=== PATIENT | male | born 1955 | race Caucasian/White ===

== ENCOUNTER 2020-08-25 10:07 | Outpatient (REF) | payer BC, SELFPAY ==
[2020-08-25 11:35] LABS: Alanine Aminotransferase 26 U/L (0-40); Albumin Level 4.8 g/dL (3.5-5.0); Alkaline Phosphatase 53 U/L (39-117); Anion Gap 13 (12-20); Aspartate Amino Transferase 18 U/L (5-37); Bilirubin Total 0.6 mg/dL (0.0-1.0); Blood Urea Nitrogen 21 mg/dL (9-16); Calcium 9.5 mg/dL (8.4-10.2); Carbon Dioxide 27 mmol/L (22-29); Chloride 104 mmol/L (96-108); Cholesterol 140 mg/dL; Estimated Glomerular Filt Rate > 60; Glucose Fasting 95 mg/dL (60-99); HDL Cholesterol 41 mg/dL; LDL Cholesterol Calculated 74 mg/dl; Sodium 140 mmol/L (135-145); Total Protein 7.4 g/dL (6.5-8.0); Triglycerides 125 mg/dL
[2020-08-30 13:36] LABS: Vitamin D 25-OH, D2 <4 ng/mL; Vitamin D 25-OH, D3 48 ng/mL; Vitamin D 25-OH, Total 48 ng/mL (30-100)
== END 2020-08-25 10:08 | disposition home or self-care (01) ==
LOC: HO.LAB 10:07
PROVIDERS: Visit Provider Internal Medicine
DX: E11.9 Type 2 diabetes mellitus without complications (principal); E55.9 Vitamin D deficiency, unspecified
CPT/HCPCS: 36415; 80053; 80061; 82306

== ENCOUNTER 2021-03-09 08:32 | Outpatient (REF) | payer BC, SELFPAY ==
[2021-03-09 10:17] LABS: Alanine Aminotransferase 26 U/L (0-40); Albumin Level 4.5 g/dL (3.5-5.0); Alkaline Phosphatase 52 U/L (39-117); Anion Gap 12 (12-20); Aspartate Amino Transferase 18 U/L (5-37); Bilirubin Total 0.5 mg/dL (0.0-1.0); Blood Urea Nitrogen 17 mg/dL (9-16); Calcium 9.3 mg/dL (8.4-10.2); Carbon Dioxide 27 mmol/L (22-29); Chloride 105 mmol/L (96-108); Cholesterol 134 mg/dL; Estimated Glomerular Filt Rate > 60; Glucose Fasting 102 mg/dL (60-99); HDL Cholesterol 41 mg/dL; LDL Cholesterol Calculated 75 mg/dl; Sodium 140 mmol/L (135-145); Total Protein 6.7 g/dL (6.5-8.0); Triglycerides 94 mg/dL
[2021-03-15 13:26] LABS: Vitamin D 25-OH, D2 <4 ng/mL; Vitamin D 25-OH, D3 41 ng/mL; Vitamin D 25-OH, Total 41 ng/mL (30-100)
== END 2021-03-09 08:33 | disposition home or self-care (01) ==
LOC: HO.LAB 08:32
PROVIDERS: PCP Internal Medicine; Visit Provider Internal Medicine
DX: E11.9 Type 2 diabetes mellitus without complications (principal); E78.5 Hyperlipidemia, unspecified; E55.9 Vitamin D deficiency, unspecified
CPT/HCPCS: 36415; 80053; 80061; 82306

== ENCOUNTER 2021-08-31 07:26 | Outpatient (REF) | payer BC, SELFPAY ==
[2021-08-31 08:28] LABS: Creatinine Urine 33.24 mg/dL; Microalbumin Urine < 5.0 mg/L
[2021-08-31 08:31] LABS: Alanine Aminotransferase 21 U/L (0-40); Albumin Level 4.6 g/dL (3.5-5.0); Alkaline Phosphatase 50 U/L (39-117); Anion Gap 12 (12-20); Aspartate Amino Transferase 18 U/L (5-37); Blood Urea Nitrogen 17 mg/dL (9-16); Calcium 9.9 mg/dL (8.4-10.2); Carbon Dioxide 28 mmol/L (22-29); Chloride 102 mmol/L (96-108); Cholesterol 144 mg/dL; Estimated Glomerular Filt Rate > 60; Glucose Fasting 105 mg/dL (60-99); HDL Cholesterol 40 mg/dL; LDL Cholesterol Calculated 81 mg/dl; Potassium 3.8 mmol/L (3.3-5.1); Sodium 138 mmol/L (135-145); Total Protein 7.2 g/dL (6.5-8.0); Triglycerides 117 mg/dL
== END 2021-08-31 07:27 | disposition home or self-care (01) ==
LOC: HO.LAB 07:26
PROVIDERS: PCP Internal Medicine; Visit Provider Internal Medicine
DX: E11.9 Type 2 diabetes mellitus without complications (principal); E78.5 Hyperlipidemia, unspecified
CPT/HCPCS: 36415; 80053; 80061; 82043

== ENCOUNTER 2022-03-13 12:03 | Outpatient (REF) | payer BC, SELFPAY ==
[2022-03-13 13:49] LABS: Creatinine Urine 107.45 mg/dL; Microalbum/Creatinine Ratio Ur 5.5 ug/mg cr
[2022-03-13 13:52] LABS: Alanine Aminotransferase 26 U/L (0-40); Albumin Level 4.3 g/dL (3.5-5.0); Alkaline Phosphatase 54 U/L (39-117); Anion Gap 14 (12-20); Aspartate Amino Transferase 20 U/L (5-37); Bilirubin Total 0.5 mg/dL (0.0-1.0); Blood Urea Nitrogen 18 mg/dL (9-16); Calcium 9.4 mg/dL (8.4-10.2); Carbon Dioxide 26 mmol/L (22-29); Chloride 105 mmol/L (96-108); Cholesterol 152 mg/dL; Estimated Glomerular Filt Rate > 60; Glucose Fasting 98 mg/dL (60-99); HDL Cholesterol 42 mg/dL; LDL Cholesterol Calculated 88 mg/dl; Potassium 4.5 mmol/L (3.3-5.1); Sodium 140 mmol/L (135-145); Total Protein 6.7 g/dL (6.5-8.0); Triglycerides 114 mg/dL
[2022-03-13 14:15] LABS: Vitamin D 25-OH Total 44.2 ng/mL (>30)
== END 2022-03-13 12:04 | disposition home or self-care (01) ==
LOC: HO.LAB 12:03
PROVIDERS: Visit Provider Internal Medicine
DX: E11.9 Type 2 diabetes mellitus without complications (principal); E78.5 Hyperlipidemia, unspecified; E55.9 Vitamin D deficiency, unspecified
CPT/HCPCS: 36415; 80053; 80061; 82043; 82306

== ENCOUNTER 2022-08-14 09:58 | Outpatient (REF) | payer BC, SELFPAY ==
--- NOTE | 2022-08-14 10:07 | ECG_ITS ---
Test Reason : preop Blood Pressure : / mmHG Vent. Rate : 068 BPM Atrial Rate : 068 BPM P-R Int : 154 ms QRS Dur : 088 ms QT Int : 430 ms P-R-T Axes : 075 038 052 degrees QTc Int : 457 ms Normal sinus rhythm Normal ECG No previous ECGs available Referred By: Hayley Morales Electronically Signed By:POLO PERALTA
[2022-08-14 10:29] LABS: Hematocrit 42.7 % (42.0-52.0); Hemoglobin 14.5 g/dl (14.0-18.0); Mean Corpuscular Hemoglobin 28.3 pg (27.0-33.0); Mean Corpuscular Volume 83.4 fL (80.0-98.0); Mean Platelet Volume 10.3 fL (9.4-12.4); Platelet Count 262 X10*3/uL (160-400); Red Blood Count 5.12 X10*6/uL (4.60-5.80); Red Cell Distribution Width 12.6 % (11.0-16.0); White Blood Count 7.6 X10*3/uL (4.8-10.8)
[2022-08-14 10:36] LABS: Prothrombin Time 11.1 SEC (10.0-13.1)
[2022-08-14 11:06] LABS: Creatinine Urine 166.89 mg/dL; Microalbum/Creatinine Ratio Ur 5.9 ug/mg cr
[2022-08-14 11:13] LABS: Alanine Aminotransferase 22 U/L (0-40); Albumin Level 4.7 g/dL (3.5-5.0); Alkaline Phosphatase 58 U/L (39-117); Anion Gap 16 (12-20); Aspartate Amino Transferase 16 U/L (5-37); Bilirubin Total 0.6 mg/dL (0.0-1.0); Blood Urea Nitrogen 23 mg/dL (9-16); Calcium 10.1 mg/dL (8.4-10.2); Carbon Dioxide 28 mmol/L (22-29); Chloride 105 mmol/L (96-108); Cholesterol 148 mg/dL; Estimated Glomerular Filt Rate > 60; Glucose Fasting 94 mg/dL (60-99); Glucose Random 93 mg/dL (60-115); HDL Cholesterol 39 mg/dL; LDL Cholesterol Calculated 64 mg/dl; Potassium 4.1 mmol/L (3.3-5.1); Sodium 145 mmol/L (135-145); Total Protein 7.2 g/dL (6.5-8.0); Triglycerides 228 mg/dL
[2022-08-14 11:20] LABS: TSH reflex Free T4 0.41 uIU/mL (0.32-4.0)
== END 2022-08-14 09:59 | disposition home or self-care (01) ==
LOC: HO.LAB 09:58
PROVIDERS: PCP Internal Medicine; Visit Provider Nurse Practitioner Family
DX: Z01.818 Encounter for other preprocedural examination (principal); E55.9 Vitamin D deficiency, unspecified; E11.9 Type 2 diabetes mellitus without complications; E78.5 Hyperlipidemia, unspecified; I10 Essential (primary) hypertension; E78.00 Pure hypercholesterolemia, unspecified
CPT/HCPCS: 36415; 80048; 80053; 80061; 82043; 82306; 84443; 85027; 85610; 93005

== ENCOUNTER 2022-09-15 08:19 | Outpatient (REF) | payer BC, SELFPAY ==
[2022-09-15 10:02] LABS: Alanine Aminotransferase 23 U/L (0-40); Albumin Level 4.5 g/dL (3.5-5.0); Alkaline Phosphatase 55 U/L (39-117); Anion Gap 13 (12-20); Aspartate Amino Transferase 19 U/L (5-37); Bilirubin Total 0.5 mg/dL (0.0-1.0); Blood Urea Nitrogen 19 mg/dL (9-16); Calcium 9.5 mg/dL (8.4-10.2); Carbon Dioxide 28 mmol/L (22-29); Chloride 104 mmol/L (96-108); Cholesterol 147 mg/dL; Estimated Glomerular Filt Rate > 60; Glucose Fasting 99 mg/dL (60-99); HDL Cholesterol 41 mg/dL; LDL Cholesterol Calculated 79 mg/dl; Potassium 4.4 mmol/L (3.3-5.1); Sodium 141 mmol/L (135-145); Total Protein 6.8 g/dL (6.5-8.0); Triglycerides 136 mg/dL
[2022-09-15 10:12] LABS: Vitamin D 25-OH Total 40.5 ng/mL (>30)
[2022-09-15 10:35] LABS: Creatinine Urine 66.99 mg/dL; Microalbum/Creatinine Ratio Ur 7.4 ug/mg cr
== END 2022-09-15 08:20 | disposition home or self-care (01) ==
LOC: HO.LAB 08:19
PROVIDERS: PCP Internal Medicine; Visit Provider Internal Medicine
DX: Z00.00 Encounter for general adult medical examination without abnormal findings (principal); E11.9 Type 2 diabetes mellitus without complications; E78.5 Hyperlipidemia, unspecified; E55.9 Vitamin D deficiency, unspecified
CPT/HCPCS: 36415; 80053; 80061; 82043; 82306

== ENCOUNTER 2023-01-10 08:41 | Outpatient (REF) | payer BC, SELFPAY ==
[2023-01-10 10:34] LABS: Estimated Average Glucose 111 mg/dL; Hemoglobin A1c % 5.5 %
== END 2023-01-10 08:42 | disposition home or self-care (01) ==
LOC: HO.LAB 08:41
PROVIDERS: PCP Internal Medicine; Visit Provider Internal Medicine
DX: E11.40 Type 2 diabetes mellitus with diabetic neuropathy, unspecified (principal)
CPT/HCPCS: 36415; 83036

== ENCOUNTER 2023-01-12 10:53 | Outpatient (AMB) | payer BC, SELFPAY ==
[2023-01-12 10:57] VITALS: BP 126/72; BMI 25.4
--- NOTE | 2023-01-12 10:57 | MHC.PC.OV ---
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 Required: No Accompanied by: Self / Same As Patient Allergies Penicillins [PENICILLINS] Allergy (Intermediate, Verified 01/12/23 11:07) RASH Medication List - Last Reconciled 01/12/23 by Melanie Lux MD atorvastatin 40 mg PO DAILY lisinopril-hydrochlorothiazide 20-25 mg 1 tab PO DAILY metformin ER 2,000 mg (4 x 500 mg) PO DAILY multivitamin 1 tab PO DAILY omega-3 fatty acids (Fish Oil Concentrate) 1,000 mg PO DAILY Tobacco use date assessed: 08/14/22 Fall risk assessment: No Falls in past year Last assessed Fall Risk: 01/12/23 Dental Screening Dental Screen Date: 01/12/23 Did you have a dental visit in the last 12 months?: Yes Did you have a dental problem in the last 6 months where you did not have access to dental care?: No Was dental information given to patient?: Patient has dentist HPI HPI Comments History of Present Illness Details This is a 67-year-old male with diabetes mellitus type 2, hypertension and dyslipidemia that complains today of a skin lesion that has been present for about 6 month in his head of beige color that bothers him. I will refer him to Dermatology denies any weight loss. A1c within goal. Blood pressure stable. LDL well control. Denies any chest pain or shortness of breath. Compliant with medications. [facility] Medical History (Updated 01/12/23 @ 11:13 by Melanie Lux MD) Diabetes mellitus Essential hypertension Hypovitaminosis D Long-term use of aspirin therapy Physical exam Pure hypercholesterolemia Surgical History H/O hernia repair History of cataract removal with insertion of prosthetic lens History of shoulder surgery Family History Father Hypertension CVD (cardiovascular disease) Myocardial infarction Mother Diabetes Aneurysm Brother Diabetes Sister Alive and well Social History Housing: House Alcohol intake: current Alcohol intake frequency: holidays/special occasions only Alcohol type: beer Patient Tobacco Use Status: Never used Tobacco e-Cigarette/Vaping Use: Never Used Second Hand Smoke Exposure: No service: No Current occupational status: employed Current occupational exposures/hazards: No Cognitive needs: No Hearing needs: No Vision needs: Yes Questionnaire Thrive Questionnaire Date Thrive assessed: 08/14/22 SARAH-7 AMB Questionnaire SARAH-7 Date SARAH - 7 assessed: 08/14/22 Source: Developed by Drs. Davion Saldivar, Rochelle Dave, Wayne Garcia and colleagues, with an educational keri from [employer]. Review of Systems Const All systems reviewed & are unremarkable except as noted in HPI and below Eyes Reports no additional complaints, Denies change in vision and Denies other visual disturbances Card Denies chest pain at rest, Denies chest pain with activity, Denies edema, Denies irregular heart rhythm, Denies claudication, Denies dyspnea, Denies dyspnea on exertion, Denies orthopnea, Denies paroxysmal nocturnal dyspnea and Denies slow heart rate Resp Denies cough, Denies dyspnea and Denies dyspnea on exertion GI Denies abdominal pain, Denies change in bowel habits, Denies excessive flatus, Denies nausea and Denies vomiting Denies urinary hesitancy, Denies urinary incontinence and Denies urinary urgency Musc Denies abnormal gait, Denies atrophy, Denies deformity and Denies limited range of motion Skin/Breast Reports lesions and Denies rash Neuro Denies abnormal gait and Denies lack of coordination Physical exam (Primary Care) Vital Signs: Last Vital Signs BP 126/72 01/12/23 10:57 BMI result Body Mass Index 25.4 Tobacco/Smoking Status: Tobacco use Status Tobacco use date assessed 08/14/22 01/12/23 11:03 Patient Tobacco Use Status Never used Tobacco 01/12/23 11:03 Tobacco use type 03/11/21 09:09 e-Cigarette/Vaping Use Never Used 01/12/23 11:03 Thrive Assessment: Date of Thrive Assessment Date Thrive assessed 08/14/22 01/12/23 11:03 Eyes General: appearance normal, both eyes and all related structures Eyelids: Yes eyelids normal Conjunctivae: conjunctivae normal Neck Neck: Yes normal visual inspection and Yes supple Resp Effort & Inspection: normal respiratory effort Auscultation: clear to auscultation bilaterally Cardio Jugular venous distension: no JVD Rate: regular rate Rhythm: regular rhythm Heart sounds: S1 normal heart sound present and S2 normal heart sound present Skin Lesions: lesion noted papule scalp color flesh-colored Extrem General: Yes full ROM Assessment and Plan Assessment & Plan (1) Diabetes mellitus: Code(s): E11.9 - Type 2 diabetes mellitus without complications Qualifiers: Diabetes mellitus type: type 2 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 A1c goal is equal or less than 7%. (2) Essential hypertension: Code(s): I10 - Essential (primary) hypertension Plan: Continue lisinopril-hydrochlorothiazide. Blood pressure goal is equal or less than 130/80. (3) Pure hypercholesterolemia: Code(s): E78.00 - Pure hypercholesterolemia, unspecified Plan: Continue statins. LDL goal is less than 70. (4) Skin lesion: Code(s): L98.9 - Disorder of the skin and subcutaneous tissue, unspecified Plan: Referred to dermatology Orders: Orders Comprehensive [place]. Panel Fast 6 Months E11.9 - Type 2 diabetes mellitus without complications Lipid Panel 6 Months E78.5 - Hyperlipidemia, unspecified Vitamin D 25-OH Total 6 Months E55.9 - Vitamin D deficiency, unspecified Microalbumin, Random (w Creat) 6 Months E11.9 - Type 2 diabetes mellitus without complications Referrals Dermatology Referral L98.9 - Disorder of the skin and subcutaneous tissue, unspecified Coding Level of Care Code Est Pt Level 4 (13118) Diagnoses Diabetes mellitus E11.9 Diabetes mellitus type: type 2 Diabetes mellitus halfway insulin use: without halfway use Diabetes mellitus complication status: without complication Essential hypertension I10 Pure hypercholesterolemia E78.00 Skin lesion L98.9 Time Spent (min) 22
== END 2023-01-12 11:26 | disposition home or self-care (01) ==
PROVIDERS: PCP Internal Medicine; Visit Provider Internal Medicine
DX: E11.9 Type 2 diabetes mellitus without complications (principal); I10 Essential (primary) hypertension; E78.00 Pure hypercholesterolemia, unspecified; L98.9 Disorder of the skin and subcutaneous tissue, unspecified
CPT/HCPCS: 99214

== ENCOUNTER 2023-07-11 08:22 | Outpatient (REF) | payer BC, SELFPAY ==
[2023-07-11 09:45] LABS: Alanine Aminotransferase 22 U/L (0-40); Albumin Level 4.7 g/dL (3.5-5.0); Alkaline Phosphatase 56 U/L (39-117); Anion Gap 13 (12-20); Aspartate Amino Transferase 19 U/L (5-37); Bilirubin Total 0.7 mg/dL (0.0-1.0); Blood Urea Nitrogen 17 mg/dL (9-16); Calcium 9.8 mg/dL (8.4-10.2); Carbon Dioxide 29 mmol/L (22-29); Chloride 104 mmol/L (96-108); Cholesterol 149 mg/dL (<200); Estimated Glomerular Filt Rate > 60; Glucose Fasting 98 mg/dL (60-99); HDL Cholesterol 42 mg/dL (>40); LDL Cholesterol Calculated 83 mg/dL (<100); Potassium 3.8 mmol/L (3.3-5.1); Sodium 142 mmol/L (135-145); Total Protein 7.5 g/dL (6.5-8.0); Triglycerides 122 mg/dL (<150)
[2023-07-11 09:47] LABS: Creatinine Urine 73.06 mg/dL; Microalbumin Urine < 5.0 mg/L
[2023-07-11 10:03] LABS: Vitamin D 25-OH Total 39.9 ng/mL (>30)
== END 2023-07-11 08:23 | disposition home or self-care (01) ==
LOC: HO.LAB 08:22
PROVIDERS: PCP Internal Medicine; Visit Provider Internal Medicine
DX: E78.5 Hyperlipidemia, unspecified (principal); E55.9 Vitamin D deficiency, unspecified; E11.9 Type 2 diabetes mellitus without complications
CPT/HCPCS: 36415; 80053; 80061; 82306; 82570

== ENCOUNTER 2023-07-13 11:03 | Outpatient (AMB) | payer BC, SELFPAY ==
--- NOTE | 2023-07-13 11:05 | MHC.PC.OV ---
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: No Accompanied by: Self / Same As Patient Allergies Penicillins [PENICILLINS] Allergy (Intermediate, Verified 07/13/23 11:20) RASH Medication List - Last Reconciled 07/13/23 by Melanie Lux MD atorvastatin 40 mg PO DAILY lisinopril-hydrochlorothiazide 20-25 mg 1 tab PO DAILY metformin ER 2,000 mg (4 x 500 mg) PO DAILY multivitamin 1 tab PO DAILY omega-3 fatty acids (Fish Oil Concentrate) 1,000 mg PO DAILY Tobacco use date assessed: 07/13/23 Fall risk assessment: No Falls in past year Last assessed Fall Risk: 07/13/23 Dental Screening Dental Screen Date: 07/13/23 Did you have a dental visit in the last 12 months?: Yes Did you have a dental problem in the last 6 months where you did not have access to dental care?: No Was dental information given to patient?: Patient has dentist HPI HPI Comments History of Present Illness Details This is a 68-year-old male with diabetes mellitus type 2, hypertension, hyperlipidemia low vitamin-D that comes today for follow-up on his conditions. A1c within goal. Blood pressure stable. LDL not on goal and I will increase atorvastatin from 40 mg to 80 mg. On vitamin-D supplements for his low vitamin-D. Complains of erectile dysfunction and would like medication for this matter. Last diabetic eye exam was July 2022. [facility] Medical History Physical exam Hypovitaminosis D Long-term use of aspirin therapy Pure hypercholesterolemia Essential hypertension Diabetes mellitus Surgical History History of cataract removal with insertion of prosthetic lens H/O hernia repair History of shoulder surgery Family History Father Hypertension CVD (cardiovascular disease) Myocardial infarction Mother Diabetes Aneurysm Brother Diabetes Sister Alive and well Social History Housing: House Alcohol intake: current Alcohol intake frequency: holidays/special occasions only Alcohol type: beer Patient Tobacco Use Status: Never used Tobacco e-Cigarette/Vaping Use: Never Used Second Hand Smoke Exposure: No service: No Current occupational status: employed Current occupational exposures/hazards: No Cognitive needs: No Hearing needs: No Vision needs: Yes Questionnaire PHQ-9 Over the last 2 weeks, how often have you been bothered by any of the following problems? 1. Little interest or pleasure in doing things: not at all 2. Feeling down, depressed, or hopeless: not at all 3. Trouble falling or staying asleep, or sleeping too much: not at all 4. Feeling tired or having little energy: not at all 5. Poor appetite or overeating: not at all 6. Feeling bad about yourself - or that you are a failure or have let yourself or your family down: not at all 7. Trouble concentrating on things, such as reading the newspaper or watching television: not at all 8. Moving or speaking so slowly that other people could have noticed. Or the opposite - being so fidgety or restless that you have been moving around a lot more than usual: not at all 9. Thoughts that you would be better off or of hurting yourself in some way: not at all Total score: 0 Depression Screening Interpretation: Negative Depression Screening Done: Yes 36094 - PHQ-9 Billing: Yes Source: Developed by Drs. Davion Saldivar, Rochelle Dave, Wayne Garcia and colleagues, with an educational keri from [employer]. Thrive Questionnaire Date Thrive assessed: 07/13/23 I am a: Patient What is your living situation today?: I have a steady place to live Within the past 12 months, did the food you bought not last and you didn't have the money to get more?: Never true Within the past 12 months, did you worry whether your food would run out before you got money to buy more?: Never true Do you have trouble paying for medicines?: No Do you have trouble getting transportation to medical appointments?: No Do you have trouble paying your heating and electricity bill?: No Do you have trouble taking care of your child, family member or friend?: No Do you have trouble with day-to-day activities such as bathing, preparing meals, shopping, managing finances, etc.?: No Are you currently unemployed and looking for a job?: No Are you interested in more education?: No Please select the resources that you would like help with: None Currently or been in a relationship where the following occur: no concerns reported THRIVE Score: 0 AUDIT C Alcohol Use Questionnaire (AUDIT-C) 1. How often do you have a drink containing alcohol?: Monthly or less 2. How many drinks containing alcohol do you have on a typical day when you are drinking?: 1 or 2 3. How often do you have six or more drinks on one occasion?: Never Total Score: 1 Score Reviewed/Action Taken: No SARAH-7 AMB Questionnaire SARAH-7 Date SARAH - 7 assessed: 07/13/23 Feeling nervous, anxious, or on edge: 0 = Not at all Not being able to stop or control worryin = Not at all Worrying too much about different things: 0 = Not at all Trouble relaxin = Not at all Being so restless that it is hard to sit still: 0 = Not at all Becoming easily annoyed or irritable: 0 = Not at all Feeling afraid as if something awful might happen: 0 = Not at all Total SARAH-7 score (0-4 normal; 5-9 mild; 10-14 moderate; 15-21 severe): 0 Source: Developed by Drs. Davion Saldivar, Rochelle Dave, Wayne Garcia and colleagues, with an educational keri from [employer]. SARAH-7 Assessment Billing SARAH-7 Assessment Tool: SARAH-7 Assessment 16952 Review of Systems Const All systems reviewed & are unremarkable except as noted in HPI and below Eyes Reports no additional complaints, Denies change in vision and Denies other visual disturbances Card Denies chest pain at rest, Denies chest pain with activity, Denies edema, Denies irregular heart rhythm, Denies claudication, Denies dyspnea, Denies dyspnea on exertion, Denies orthopnea, Denies paroxysmal nocturnal dyspnea and Denies slow heart rate Resp Denies cough, Denies dyspnea and Denies dyspnea on exertion GI Denies abdominal pain, Denies change in bowel habits, Denies excessive flatus, Denies nausea and Denies vomiting Denies urinary hesitancy, Denies urinary incontinence and Denies urinary urgency Musc Denies abnormal gait, Denies atrophy, Denies deformity and Denies limited range of motion Skin/Breast Denies bleeding lesions, Denies changing lesions and Denies rash Neuro Denies abnormal gait, Denies behavioral changes and Denies lack of coordination Psych Denies behavioral changes Physical exam (Primary Care) Vital Signs: Last Vital Signs BP 126/80 07/13/23 11:06 BMI result Body Mass Index 26.2 Tobacco/Smoking Status: Tobacco use Status Tobacco use date assessed 07/13/23 07/13/23 11:14 Patient Tobacco Use Status Never used Tobacco 07/13/23 11:07 Tobacco use type 03/11/21 09:09 e-Cigarette/Vaping Use Never Used 07/13/23 11:07 PHQ-9: PHQ-9 Score PHQ-9: Total score 0 07/13/23 11:14 Depression Screening Interpretation: Negative Thrive Assessment: Date of Thrive Assessment Date Thrive assessed 07/13/23 07/13/23 11:14 Currently or been in a relationship where the following occur: no concerns reported Neck Neck: Yes normal visual inspection and Yes supple Resp Effort & Inspection: normal respiratory effort Auscultation: clear to auscultation bilaterally Cardio Jugular venous distension: no JVD Rate: regular rate Rhythm: regular rhythm Heart sounds: S1 normal heart sound present and S2 normal heart sound present Extrem General: Yes full ROM Office Procedures Flu Questionnaire Does the patient have a severe egg allergy?: No Results AMB Hemoglobin A1c AMB Hemoglobin A1c 6.4 % Last Edit by YURIDIA Nelson on 07/13/23 11:15 Immunizations flu vacc [id number] 6mos up(PF) 60 mcg(15 mcgx4)/0.5 mL IM syringe Performing Provider: Melanie Lux MD [facility] Documented (not given) by: YURIDIA Nelson on 07/13/23 11:15 Reason Not Given: Patient Refused Results Reviewed Results Reviewed: Laboratory Last Values Hgb A1c (Clinic) 6.4 % (4.0-6.0) H 07/13/23 11:14 Assessment and Plan Assessment & Plan (1) Diabetes mellitus: Code(s): E11.9 - Type 2 diabetes mellitus without complications Qualifiers: Diabetes mellitus type: type 2 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 A1c goal is equal or less than 7%. (2) Essential hypertension: Code(s): I10 - Essential (primary) hypertension Plan: Continue lisinopril-hydrochlorothiazide. Blood pressure goal is equal or less than 130/80. (3) Pure hypercholesterolemia: Code(s): E78.00 - Pure hypercholesterolemia, unspecified Plan: Increase atorvastatin from 40 mg to 80 mg. LDL goal is less than 70. (4) Hypovitaminosis D: Code(s): E55.9 - Vitamin D deficiency, unspecified Plan: Continue vitamin-D supplements. Orders: Orders AMB Hemoglobin A1c Today E11.9 - Type 2 diabetes mellitus without complications Influenza [id number] Immunization Today Z23 - Encounter for immunization Medications: New atorvastatin 80 mg PO BEDTIME 90 days 90 tabs 1RF tadalafil administer approximately 30min before sexual activity; do not use more than 1 dose per 24hrs 20 mg PO DAILY 30 days PRN 5 tabs 3RF sexual activity Discontinued atorvastatin Discontinued Reason: Patient Completed Course 40 mg PO DAILY 90 caps 3RF Coding Level of Care Code Est Pt Level 4 (33195) Diagnoses Type 2 diabetes mellitus without complication, without long-term current use of insulin E11.9 Diabetes mellitus type: type 2 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
[2023-07-13 11:06] VITALS: BP 126/80; BMI 26.2
== END 2023-07-13 11:27 | disposition home or self-care (01) ==
PROVIDERS: PCP Internal Medicine; Visit Provider Internal Medicine
DX: E11.9 Type 2 diabetes mellitus without complications (principal); I10 Essential (primary) hypertension; E78.00 Pure hypercholesterolemia, unspecified; E55.9 Vitamin D deficiency, unspecified
CPT/HCPCS: 83036; 99214

== ENCOUNTER 2023-09-21 10:56 | Outpatient (AMB) | payer BC, SELFPAY ==
[2023-09-21 11:03] VITALS: BP 120/60; BMI 26.3
--- NOTE | 2023-09-21 11:03 | MHC.PC.OV ---
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 Accompanied by: Self / Same As Patient Allergies Penicillins [PENICILLINS] Allergy (Intermediate, Verified 09/21/23 11:14) RASH Medication List - Last Reconciled 09/21/23 by Melanie Lux MD atorvastatin 80 mg PO BEDTIME 90 days lisinopril-hydrochlorothiazide 20-25 mg 1 tab PO DAILY metformin ER 2,000 mg (4 x 500 mg) PO DAILY multivitamin 1 tab PO DAILY omega-3 fatty acids (Fish Oil Concentrate) 1,000 mg PO DAILY tadalafil 20 mg PO DAILY PRN 30 days Tobacco use date assessed: 07/13/23 Fall risk assessment: No Falls in past year Last assessed Fall Risk: 09/21/23 Dental Screening Dental Screen Date: 07/13/23 Did you have a dental visit in the last 12 months?: No Did you have a dental problem in the last 6 months where you did not have access to dental care?: No Was dental information given to patient?: Patient has dentist HPI HPI Comments History of Present Illness Details This is a 68-year-old male that comes for his physical exam. He has diabetes mellitus type 2 and A1cs within goal. Last colonoscopy was 2019 and was normal. Diabetic eye exam is done yearly. Denies any chest pain or shortness of breath. No fever or cough. [facility] Medical History Physical exam Hypovitaminosis D Long-term use of aspirin therapy Pure hypercholesterolemia Essential hypertension Diabetes mellitus Surgical History History of cataract removal with insertion of prosthetic lens H/O hernia repair History of shoulder surgery Family History Father Hypertension CVD (cardiovascular disease) Myocardial infarction Mother Diabetes Aneurysm Brother Diabetes Sister Alive and well Social History Housing: House Alcohol intake: current Alcohol intake frequency: holidays/special occasions only Alcohol type: beer Patient Tobacco Use Status: Never used Tobacco e-Cigarette/Vaping Use: Never Used Second Hand Smoke Exposure: No service: No Current occupational status: employed Current occupational exposures/hazards: No Cognitive needs: No Hearing needs: No Vision needs: Yes Questionnaire Thrive Questionnaire Date Thrive assessed: 07/13/23 SARAH-7 AMB Questionnaire SARAH-7 Date SARAH - 7 assessed: 07/13/23 Source: Developed by Drs. Davion Saldivar, Rochelle Dave, Wayne Garcia and colleagues, with an educational keri from [employer]. Review of Systems Const All systems reviewed & are unremarkable except as noted in HPI and below Eyes Reports no additional complaints, Denies change in vision and Denies other visual disturbances Card Denies chest pain at rest, Denies chest pain with activity, Denies edema, Denies irregular heart rhythm, Denies claudication, Denies dyspnea, Denies dyspnea on exertion, Denies orthopnea, Denies paroxysmal nocturnal dyspnea and Denies slow heart rate Resp Denies cough, Denies dyspnea and Denies dyspnea on exertion GI Denies abdominal pain, Denies change in bowel habits, Denies excessive flatus, Denies nausea and Denies vomiting Denies urinary hesitancy, Denies urinary incontinence and Denies urinary urgency Musc Denies atrophy, Denies deformity and Denies limited range of motion Physical exam (Primary Care) Vital Signs: Last Vital Signs BP 120/60 09/21/23 11:03 BMI result Body Mass Index 26.3 Tobacco/Smoking Status: Tobacco use Status Tobacco use date assessed 07/13/23 09/21/23 11:08 Patient Tobacco Use Status Never used Tobacco 09/21/23 11:08 Tobacco use type 03/11/21 09:09 e-Cigarette/Vaping Use Never Used 09/21/23 11:08 Thrive Assessment: Date of Thrive Assessment Date Thrive assessed 07/13/23 09/21/23 11:08 Const Orientation/consciousness: patient oriented x3 HENMT Head: Yes normal to inspection, Yes normocephalic and Yes atraumatic Ears: external ears normal Eyes General: appearance normal, both eyes and all related structures Eyelids: Yes eyelids normal Conjunctivae: conjunctivae normal Neck Neck: Yes normal visual inspection and Yes supple Resp Effort & Inspection: normal respiratory effort Auscultation: clear to auscultation bilaterally Cardio Jugular venous distension: no JVD Rate: regular rate Rhythm: regular rhythm Heart sounds: S1 normal heart sound present and S2 normal heart sound present GI Inspection: Yes normal to inspection Palpation (GI): Soft to palpation and nontender Auscultation: normal bowel sounds Skin General skin exam: no rashes or lesions noted Neuro General: patient oriented x3 and no focal motor deficits Extrem General: Yes full ROM Psych Appearance: grossly normal Assessment and Plan Assessment & Plan (1) Physical exam: Code(s): Z00.00 - Encounter for general adult medical examination without abnormal findings Plan: Repeat in a year. (2) Diabetes mellitus: Code(s): E11.9 - Type 2 diabetes mellitus without complications Qualifiers: Diabetes mellitus type: type 2 Diabetes mellitus senior care insulin use: without senior care use Diabetes mellitus complication status: without complication Qualified Code(s): E11.9 - Type 2 diabetes mellitus without complications Plan: Continue metformin. A1c goal is equal or less than 7%. Orders: Orders Lipid Panel 6 Months E78.5 - Hyperlipidemia, unspecified, Z00.00 - Encounter for general adult medical examination without abnormal findings Comprehensive [place]. Panel Fast 6 Months Z00.00 - Encounter for general adult medical examination without abnormal findings Coding Level of Care Code Est Pt Prev Care >65y(54299) Diagnoses Physical exam Z00.00 Type 2 diabetes mellitus without complication, without long-term current use of insulin E11.9 Diabetes mellitus type: type 2 Diabetes mellitus senior care insulin use: without senior care use Diabetes mellitus complication status: without complication Time Spent (min) 31
== END 2023-09-21 11:29 | disposition home or self-care (01) ==
PROVIDERS: PCP Internal Medicine; Visit Provider Internal Medicine
DX: Z00.00 Encounter for general adult medical examination without abnormal findings (principal); E11.9 Type 2 diabetes mellitus without complications
CPT/HCPCS: 99397

== ENCOUNTER 2024-03-26 08:59 | Outpatient (REF) | payer MEDICARE, MEDICAID, SELFPAY ==
[2024-03-26 10:14] LABS: Alanine Aminotransferase 32 U/L (0-40); Albumin Level 4.8 g/dL (3.5-5.0); Alkaline Phosphatase 53 U/L (39-117); Anion Gap 14 (12-20); Aspartate Amino Transferase 23 U/L (5-37); Bilirubin Total 0.6 mg/dL (0.0-1.0); Blood Urea Nitrogen 17 mg/dL (9-16); Carbon Dioxide 28 mmol/L (22-29); Chloride 104 mmol/L (96-108); Cholesterol 130 mg/dL (<200); Estimated Glomerular Filt Rate > 60; Glucose Fasting 106 mg/dL (60-99); HDL Cholesterol 44 mg/dL (>40); LDL Cholesterol Calculated 64 mg/dL (<100); Potassium 3.9 mmol/L (3.3-5.1); Sodium 142 mmol/L (135-145); Total Protein 7.6 g/dL (6.5-8.0); Triglycerides 111 mg/dL (<150)
== END 2024-03-26 09:00 | disposition home or self-care (01) ==
LOC: HO.LAB 08:59
PROVIDERS: PCP Internal Medicine; Visit Provider Internal Medicine
DX: Z00.00 Encounter for general adult medical examination without abnormal findings (principal); E78.5 Hyperlipidemia, unspecified
CPT/HCPCS: 36415; 80053; 80061

== ENCOUNTER 2024-03-28 10:48 | Outpatient (AMB) | payer MEDICARE, MEDICAID, SELFPAY ==
[2024-03-28 10:53] VITALS: BP 118/70; BMI 25.1
--- NOTE | 2024-03-28 10:53 | A.OFFPC_ITS ---
Vital Signs 03/28/24 10:53 Height 6 ft Weight 185 lb BMI 25.1 BP 118/70 Blood Pressure Location Lt brachial Position Sitting Intake Visit Reasons: dm Intake Note: Patient here for a follow up DM Camera Mechanic Required: No Accompanied by: Self / Same As Patient Allergies Penicillins [PENICILLINS] Allergy (Intermediate, Verified 03/28/24 11:06) RASH Medication List - Last Reconciled 03/28/24 by Melanie Lux MD atorvastatin 80 mg PO BEDTIME 90 days lisinopril-hydrochlorothiazide 20-25 mg 1 tab PO DAILY metformin ER 2,000 mg (4 x 500 mg) PO DAILY multivitamin 1 tab PO DAILY omega-3 fatty acids (Fish Oil Concentrate) 1,000 mg PO DAILY tadalafil 20 mg PO DAILY PRN 30 days Tobacco use date assessed: 07/13/23 Fall risk assessment: No Falls in past year Last assessed Fall Risk: 03/28/24 Dental Screening Dental Screen Date: 03/28/24 Did you have a dental visit in the last 12 months?: No Did you have a dental problem in the last 6 months where you did not have access to dental care?: No Was dental information given to patient?: Patient has dentist HPI HPI Comments History of Present Illness Details This is a 69-year-old male with diabetes mellitus type 2, hypertension, pure hypercholesterolemia low vitamin-D that comes today for follow-up on his conditions. A1c within goal. Blood pressure stable. LDL within goal. On vitamin-D supplements for his low vitamin-D chest pain or shortness on breath. No fever or cough. [facility] Medical History (Updated 03/28/24 @ 11:15 by Melanie Lux MD) Physical exam Hypovitaminosis D Long-term use of aspirin therapy Pure hypercholesterolemia Essential hypertension Diabetes mellitus Surgical History History of cataract removal with insertion of prosthetic lens H/O hernia repair History of shoulder surgery Family History Father Hypertension CVD (cardiovascular disease) Myocardial infarction Mother Diabetes Aneurysm Brother Diabetes Sister Alive and well Social History Housing: House Alcohol intake: current Alcohol intake frequency: holidays/special occasions only Alcohol type: beer Patient Tobacco Use Status: Never used Tobacco e-Cigarette/Vaping Use: Never Used Second Hand Smoke Exposure: No service: No Current occupational status: retired Cognitive needs: No Hearing needs: No Vision needs: Yes Questionnaire Thrive Questionnaire Date Thrive assessed: 07/13/23 SARAH-7 AMB Questionnaire SARAH-7 Date SARAH - 7 assessed: 07/13/23 Source: Developed by Drs. Davion Saldivar, Rochelle Dave, Wayne Garcia and colleagues, with an educational keri from [employer]. Review of Systems Const All systems reviewed & are unremarkable except as noted in HPI and below Card Denies chest pain at rest, Denies chest pain with activity, Denies edema, Denies irregular heart rhythm, Denies claudication, Denies dyspnea, Denies dyspnea on exertion, Denies orthopnea, Denies paroxysmal nocturnal dyspnea and Denies slow heart rate Resp Denies cough, Denies dyspnea and Denies dyspnea on exertion GI Denies abdominal pain, Denies change in bowel habits, Denies excessive flatus, Denies nausea and Denies vomiting Denies urinary hesitancy, Denies urinary incontinence and Denies urinary urgency Neuro Denies lack of coordination Physical exam (Primary Care) Vital Signs: Last Vital Signs BP 118/70 03/28/24 10:53 BMI result Body Mass Index 25.1 Tobacco/Smoking Status: Tobacco use Status Tobacco use date assessed 07/13/23 03/28/24 11:00 Patient Tobacco Use Status Never used Tobacco 03/28/24 11:00 Tobacco use type 03/11/21 09:09 e-Cigarette/Vaping Use Never Used 03/28/24 11:00 Thrive Assessment: Date of Thrive Assessment Date Thrive assessed 07/13/23 03/28/24 11:00 Resp Effort & Inspection: normal respiratory effort Auscultation: clear to auscultation bilaterally Cardio Jugular venous distension: no JVD Rate: regular rate Rhythm: regular rhythm Heart sounds: S1 normal heart sound present and S2 normal heart sound present Extrem General: Yes full ROM Office Procedures Flu Questionnaire Does the patient have a severe egg allergy?: No Results AMB Hemoglobin A1c AMB Hemoglobin A1c 5.8 % Last Edit by YURIDIA Nelson on 03/28/24 11:0 4 Immunizations Fluarix Triv [id number] (PF) 45 mcg (15 mcg x 3)/0.5 mL IM syringe Performing Provider: Melanie Lux MD Performing Location: [facility] [place] [facility] Documented (not given) by: YURIDIA Nelson on 03/28/24 11:00 Reason Not Given: Patient Refused Results Reviewed Results Reviewed: Laboratory Last Values Hgb A1c (Clinic) 5.8 % (4.0-6.0) 03/28/24 11:02 Coding Level of Care Code Est Pt Level 4 (37327) Complex EM visit Add On G2211 Diagnoses Essential hypertension I10 Type 2 diabetes mellitus without complication, without long-term current use of insulin E11.9 Diabetes mellitus type: type 2 Diabetes mellitus extermination supervisor insulin use: without extermination supervisor use Diabetes mellitus complication status: without complication Pure hypercholesterolemia E78.00 Hypovitaminosis D E55.9 Time Spent (min) 22 Assessment & Plan Assessment & Plan (1) Essential hypertension: Code(s): I10 - Essential (primary) hypertension Category: Medical Plan: Continue lisinopril-hydrochlorothiazide. Blood pressure goal is equal or less than 130/80. (2) Diabetes mellitus: Code(s): E11.9 - Type 2 diabetes mellitus without complications Category: Medical Qualifiers: Diabetes mellitus type: type 2 Diabetes mellitus extermination supervisor insulin use: without extermination supervisor use Diabetes mellitus complication status: without complication Qualified Code(s): E11.9 - Type 2 diabetes mellitus without complications Plan: Continue metformin. A1c goal is equal or less than 7%. (3) Pure hypercholesterolemia: Code(s): E78.00 - Pure hypercholesterolemia, unspecified Category: Medical Plan: Continue statins. LDL goal is less than 70. (4) Hypovitaminosis D: Code(s): E55.9 - Vitamin D deficiency, unspecified Category: Medical Plan: Continue vitamin-D supplements. Orders: Orders AMB Hemoglobin A1c Today E11.9 - Type 2 diabetes mellitus without complications Lipid Panel 6 Months E78.5 - Hyperlipidemia, unspecified PSA,Total (Free>4and<10) 6 Months R35.1 - Nocturia Comprehensive [place]. Panel Fast 6 Months E11.9 - Type 2 diabetes mellitus without complications Influenza [id number] Immunization Today Z23 - Encounter for immunization Microalbumin, Random (w Creat) 6 Months R80.9 - Proteinuria, unspecified
== END 2024-03-28 11:14 | disposition home or self-care (01) ==
PROVIDERS: PCP Internal Medicine; Visit Provider Internal Medicine
DX: I10 Essential (primary) hypertension (principal); E11.9 Type 2 diabetes mellitus without complications; E78.00 Pure hypercholesterolemia, unspecified; E55.9 Vitamin D deficiency, unspecified; Z23 Encounter for immunization

== ENCOUNTER → 2024-03-28 10:48 | Outpatient (BNVA) | payer MEDICARE, MEDICAID, SELFPAY | PROVIDERS: PCP Internal Medicine; Visit Provider Internal Medicine | DX: E11.9 Type 2 diabetes mellitus without complications (principal); I10 Essential (primary) hypertension; E78.00 Pure hypercholesterolemia, unspecified; E55.9 Vitamin D deficiency, unspecified | CPT/HCPCS: 83036; 90471; 99212 ==

== ENCOUNTER 2024-09-26 08:31 | Outpatient (REF) | payer MEDICARE, MEDICAID, SELFPAY ==
[2024-09-26 10:15] LABS: Alanine Aminotransferase 28 U/L (0-40); Albumin Level 4.5 g/dL (3.5-5.0); Alkaline Phosphatase 55 U/L (39-117); Anion Gap 11 (12-20); Aspartate Amino Transferase 24 U/L (5-37); Bilirubin Total 0.4 mg/dL (0.0-1.0); Blood Urea Nitrogen 18 mg/dL (9-16); Calcium 9.4 mg/dL (8.4-10.2); Carbon Dioxide 27 mmol/L (22-29); Chloride 108 mmol/L (96-108); Cholesterol 128 mg/dL (<200); Estimated Glomerular Filt Rate > 60; Glucose Fasting 105 mg/dL (60-99); HDL Cholesterol 41 mg/dL (>40); LDL Cholesterol Calculated 71 mg/dL (<100); Potassium 4.1 mmol/L (3.3-5.1); Sodium 142 mmol/L (135-145); Triglycerides 84 mg/dL (<150)
[2024-09-26 10:36] LABS: PSA,Total (Free>4and<10) 4.78 ng/mL (0.00-4.00)
[2024-09-26 11:18] LABS: Creatinine Urine 122.27 mg/dL; Microalbum/Creatinine Ratio Ur 4.9 ug/mg cr (<30)
[2024-09-27 11:54] LABS: Free Prostate Spec Ag 0.8 ng/mL; Percent Free Prostate Spec Ag 19 % (calc) (>25); Prostate Specific Ag Total 4.2 ng/mL (< OR = 4.0)
== END 2024-09-26 08:32 | disposition home or self-care (01) ==
LOC: HO.LAB 08:31
PROVIDERS: PCP Internal Medicine; Visit Provider Internal Medicine
DX: E11.9 Type 2 diabetes mellitus without complications (principal); R35.1 Nocturia; E78.5 Hyperlipidemia, unspecified; R80.9 Proteinuria, unspecified; Z12.5 Encounter for screening for malignant neoplasm of prostate
CPT/HCPCS: 36415; 80053; 80061; 82043; 82570; 84153; 84154

== ENCOUNTER 2024-09-27 12:55 | Outpatient (AMB) | payer MEDICARE, MEDICAID, SELFPAY ==
--- NOTE | 2024-09-27 13:01 | A.OFFVIS_ITS ---
Intake Vital Signs 09/27/24 13:02 Height 6 ft Weight 189 lb BMI 25.6 BP 110/74 Blood Pressure Location Lt brachial Position Sitting Intake Visit Reasons: 1yrf\u Manager Program Management Required: No Accompanied by: Self / Same As Patient Allergies Penicillins [PENICILLINS] Allergy (Intermediate, Verified 09/27/24 13:31) RASH Medication List - Last Reconciled 09/27/24 by Melanie Lux MD atorvastatin 80 mg PO BEDTIME 90 days lisinopril-hydrochlorothiazide 20-25 mg 1 tab PO DAILY metformin ER 2,000 mg (4 x 500 mg) PO DAILY multivitamin 1 tab PO DAILY omega-3 fatty acids (Fish Oil Concentrate) 1,000 mg PO DAILY tadalafil 20 mg PO DAILY PRN 30 days HPI HPI Comments History of Present Illness Details The patient is a 69-year-old male presenting for a Medicare annual wellness examination. During this visit, multiple chronic conditions were reviewed, including type 2 diabetes mellitus, hyperlipidemia, and hypertension. The diabetes appears well controlled with an A1c of 5.9%, and cholesterol levels are favorable. Liver and kidney function tests indicate no abnormalities. He has undergone a colonoscopy in 2019 with normal findings and will require the next colonoscopy in 2028. The patient's past surgical history includes cataract surgery, hernia repair, and shoulder surgery. An allergy to penicillin is noted, causing a rash. Family history reveals a father with heart disease and hypertension, and a mother with diabetes and an aneurysm. He has not yet received a pneumococcal vaccine but has received a tetanus vaccine in 2019. The patient reports nocturia with urination up to three times at night but does not experience significant sleep disruption as he is able to return to sleep without difficulty. Elevated PSA levels are noted yet have not been addressed with a specialist. Nocturia aside, he reports no major urinary symptoms at present. [facility] Medical History (Updated 09/27/24 @ 14:36 by Melanie Lux MD) Physical exam Hypovitaminosis D Long-term use of aspirin therapy Pure hypercholesterolemia Essential hypertension Diabetes mellitus Surgical History History of cataract removal with insertion of prosthetic lens H/O hernia repair History of shoulder surgery Family History Father Hypertension CVD (cardiovascular disease) Myocardial infarction Mother Diabetes Aneurysm Brother Diabetes Sister Alive and well Social History Housing: House Alcohol intake: current Alcohol intake frequency: holidays/special occasions only Alcohol type: beer Patient Tobacco Use Status: Never used Tobacco e-Cigarette/Vaping Use: Never Used Second Hand Smoke Exposure: No service: No Current occupational status: retired Cognitive needs: No Hearing needs: No Vision needs: Yes Questionnaire Medicare Wellness Checkup [age] What gender do you identify with?: male During the past 4 weeks, how much have you been bothered by emotional problems such as feeling anxious, depressed, irritable, sad or downhearted, and blue?: not at all During the past 4 weeks, has your physical & emotional health limited your social activities with family, friends, neighbors, or groups?: not at all During the past 4 weeks, how much bodily pain have you generally had?: very mild pain During the past 4 weeks, was someone available to help you if you needed & wanted help?: yes, as much as I wanted During the past 4 weeks, what was the hardest physical activity you could do for at least 2 minutes?: moderate Can you get to places out of walking distance without help? (For eg., can you travel alone on buses, taxis or drive your car?): Yes Can you go shopping for groceries or clothes without someone's help?: Yes Can you prepare your own meals?: Yes Can you do your housework without help?: Yes Because of any health problems, do you need the help of another person with your personal care needs such as eating, bathing, dressing or getting around the house?: No Can you handle your own money without help?: Yes During the past 4 weeks, how would you rate your health in general?: very good During the past 4 weeks how have things been going for you?: pretty well Are you having difficulties driving your car?: no Do you always fasten your seat belt when you are in a car?: yes, usually During past 4 weeks, have you been bothered by the following: never: Trouble eating well?, Teeth or denture problems? and Problems using the telephone?, seldom: Falling or dizzy when standing up, sometimes: Tiredness or fatigue? and always: Sexual problems? Have you fallen 2 or more times in the past year?: No Are you afraid of falling?: No Are you a smoker?: no During the past 4 weeks, how many drinks of wine, beer, or other alcoholic beverages did you have?: 2-5 drinks per week Do you exercise for about 20 minutes 3 or more times a week?: yes, most of the time Have you been given information to help with the following?: no: Hazards in your house that might hurt you? and no: Keeping track of your medications? How often do you have trouble taking medicines the way you have been told to take them?: I always take medicine as prescribed How confident are you that you can control & manage most of your health problems?: very confident What is your race?: White Mini Mental State Exam (MMSE) Orientation What is the (year) (season) (date) (day) (month)?: year, season, date, day and month Where are we (state) (county) (town or city) (hospital) (floor)?: state, county, town or city, hospital/clinic and floor Registration Name of 3 unrelated objects clearly and slowly, then ask patient to repeat all 3 of them. (1st repeat determines score. Make sure they can repeat all three): object 1, object 2 and object 3 Attention & Calculation (CHOOSE ONE) Spell WORLD backwards (DLROW): 4 letters Recall Ask patient to repeat the 3 items from question #3.: object 1, object 2 and object 3 Language Show patient a wristwatch & ask what it is. Repeat for pencil.: watch and pencil Ask the patient to repeat the phrase 'No ifs, ands, or buts' after you.: correct Ask the patient to 'take a piece of paper with their right hand' 'fold paper in half' 'place paper on floor': take paper in right hand, fold paper in half and place paper on floor Print the sentence 'CLOSE YOUR EYES' on a piece. If patient actually closes eyes then score.: followed written direction Give patient a blank piece of paper & ask to write a sentence. Score if it contains a noun & verb.: sentence contains subject and verb Ask patient to copy figure of intersecting pentagons exactly. Score if all 10 angles & 2 intersects are included.: all 10 angles present & 2 are intersected Score Score: 29 Activity of Daily Living Bathing - sponge bath, tub bath or shower: receives no assistance (gets in/out by self, if usual bathing means Dressing - getting clothes from closets & drawers, including inner/outer garments & fasteners.: gets clothes & gets completely dressed without help Toileting - going to the 'toilet room' for urine/bowel elimination & cleaning self/arranging clothes: goes to toilet room, cleans self, arranges clothes without help Transfer: moves in & out of bed and chair without help (may use support object) Continence: controls urination/bowel movements completely by self Feeding: feeds self without help Total Score: 0 Information obtained from: patient Using telephone: independent Traveling: independent Shopping: independent Preparing meals: independent Housework: independent Taking medicine: independent Managing money: independent PHQ-9 Over the last 2 weeks, how often have you been bothered by any of the following problems? 1. Little interest or pleasure in doing things: not at all 2. Feeling down, depressed, or hopeless: not at all 3. Trouble falling or staying asleep, or sleeping too much: not at all 4. Feeling tired or having little energy: not at all 5. Poor appetite or overeating: not at all 6. Feeling bad about yourself - or that you are a failure or have let yourself or your family down: not at all 7. Trouble concentrating on things, such as reading the newspaper or watching television: not at all 8. Moving or speaking so slowly that other people could have noticed. Or the opposite - being so fidgety or restless that you have been moving around a lot more than usual: not at all 9. Thoughts that you would be better off or of hurting yourself in some way: not at all Total score: 0 Depression Screening Interpretation: Negative Depression Screening Done: Yes 82271 - PHQ-9 Billing: Yes Source: Developed by Drs. Davion Saldivar, Rochelle Dave, Wayne Garcia and colleagues, with an educational keri from [employer]. Fall Risk Assessment Fall Risk Assessment Fall risk assessment: No Falls in past year AUDIT C Alcohol Use Questionnaire (AUDIT-C) 1. How often do you have a drink containing alcohol?: Monthly or less 2. How many drinks containing alcohol do you have on a typical day when you are drinking?: 1 or 2 3. How often do you have six or more drinks on one occasion?: Never Total Score: 1 Score Reviewed/Action Taken: No SARAH-7 AMB Questionnaire SARHA-7 Date SARAH - 7 assessed: 09/27/24 Feeling nervous, anxious, or on edge: 0 = Not at all Not being able to stop or control worryin = Not at all Worrying too much about different things: 0 = Not at all Trouble relaxin = Not at all Being so restless that it is hard to sit still: 0 = Not at all Becoming easily annoyed or irritable: 0 = Not at all Feeling afraid as if something awful might happen: 0 = Not at all Total SARAH-7 score (0-4 normal; 5-9 mild; 10-14 moderate; 15-21 severe): 0 Source: Developed by Drs. Davion Saldivar, Rochelle Dave, Wayne Garcia and colleagues, with an educational keri from [employer]. SARAH-7 Assessment Billing SARAH-7 Assessment Tool: SARAH-7 Assessment 10412 Thrive Questionnaire Date Thrive assessed: 07/13/23 Review of Systems Const All systems reviewed & are unremarkable except as noted in HPI and below Card Denies chest pain at rest, Denies chest pain with activity, Denies edema, Denies irregular heart rhythm, Denies claudication, Denies dyspnea, Denies dyspnea on exertion, Denies orthopnea, Denies paroxysmal nocturnal dyspnea and Denies slow heart rate Resp Denies cough, Denies dyspnea and Denies dyspnea on exertion Neuro Denies behavioral changes, Denies confusion and Denies lack of coordination Psych Denies behavioral changes and Denies confusion Physical Exam Vital Signs: Last Vital Signs BP 110/74 09/27/24 13:02 BMI result Body Mass Index 25.6 Const General: No confusion Orientation/consciousness: patient oriented x3 and No confusion Resp Effort & Inspection: normal respiratory effort Auscultation: clear to auscultation bilaterally Cardio Jugular venous distension: no JVD Rate: regular rate Rhythm: regular rhythm Heart sounds: S1 normal heart sound present and S2 normal heart sound present Neuro General: patient oriented x3, no focal motor deficits and No confusion Romberg Test: Negative Extrem General: Yes full ROM Psych Appearance: grossly normal Results AMB Hemoglobin A1c AMB Hemoglobin A1c 5.9 % Last Edit by YURIDIA Nelson on 09/27/24 13:2 9 Immunizations pneumoc 20-garrett conj-dip cr(PF) 0.5 mL IM syringe Performing Provider: Melanie Lux MD Performing Location: [facility] [place] [facility] Administered by: Vane Manzo LPN on 09/27/24 13:51 Dose Route Admin Location Dispensed Lot Number Expiration Date NDC [employer]eron[employer] Professor 0.5 mL IM Left Deltoid 0.5 mL [id number] 12/19/26 4169-5968-71 [employer] VIS Given Date VIS Provided VIS Publication Date 09/27/24 Single Vaccine 21 Eligibility Eligibility Date Funding Source Not [facility] Eligible 09/27/24 Private Results Reviewed Results Reviewed: Laboratory Last Values Hgb A1c (Clinic) 5.9 % (4.0-6.0) 09/27/24 13:03 Assessment & Plan Assessment & Plan (1) Encounter for Medicare annual wellness exam: Code(s): Z00.00 - Encounter for general adult medical examination without abnormal findings (2) Elevated PSA: Code(s): R97.20 - Elevated prostate specific antigen [PSA] (3) Diabetes mellitus: Code(s): E11.9 - Type 2 diabetes mellitus without complications Qualifiers: Diabetes mellitus type: type 2 Diabetes mellitus intermediate insulin use: without remote computer terminal operator use Diabetes mellitus complication status: without complication Qualified Code(s): E11.9 - Type 2 diabetes mellitus without complications Plan The patient will receive a pneumococcal vaccine today to update his immunization status. Ongoing management of chronic hypertension, diabetes, and hyperlipidemia appear well-controlled, so medications including atorvastatin, lisinopril with hydrochlorothiazide, and metformin will continue unchanged. Noticing an elevated PSA, I will refer him to a urologist for evaluation. Notably, the patient's nocturia, although frequent, does not currently interfere with his daily activities or sleep quality. This management plan ensures both continued control over his chronic conditions and proactive intervention regarding his PSA levels. Patient was informed and verbally consented to the use of an ambient scribe for clinic note documentation during this visit. During our discussion, I emphasized the importance of updating his pneumococcal vaccine due to age and chronic disease status. For his nocturia and elevated PSA levels, I explained the need for evaluation by a urologist to rule out any underlying issues, noting that presently it does not affect daily living. We reviewed his current medication regimen, agreeing to maintain it due to satisfactory disease management outcomes. All recommendations were well received by the patient. Details regarding his healthcare proxy and needed paperwork were provided for his sister to complete. Orders: Orders Comprehensive [place]. Panel Fast 4 Months E11.9 - Type 2 diabetes mellitus without complications Pneumococcal 20 Immunization Today Z23 - Encounter for immunization AMB Hemoglobin A1c Today E11.9 - Type 2 diabetes mellitus without complications Lipid Panel 4 Months E78.5 - Hyperlipidemia, unspecified Microalbumin, Random (w Creat) 4 Months R80.9 - Proteinuria, unspecified Vitamin D 25-OH Total 4 Months E55.9 - Vitamin D deficiency, unspecified Referrals Urology Referral R97.20 - Elevated prostate specific antigen [PSA] Quality Reporting (2019) Fall Risk Screening ([facility] 139) Fall risk assessment: No Falls in past year Depression/Bipolar (159/160/161/177) PHQ-9: Total score: 0 Coding Level of Care Code Medicare First (G0438) Est Pt Level 3 (75767) Diagnoses Encounter for Medicare annual wellness exam Z00.00 Elevated PSA R97.20 Type 2 diabetes mellitus without complication, without long-term current use of insulin E11.9 Diabetes mellitus type: type 2 Diabetes mellitus remote computer terminal operator insulin use: without remote computer terminal operator use Diabetes mellitus complication status: without complication CPT Codes Advance Care Planning - Time spent: 1-15 minutes, on File ([id number]) Additional Codes SARAH-7 Assessment Billing - SARAH-7 Assessment Tool: SARAH-7 Assessment 87331 ([id number]) PHQ-9 - 54740 - PHQ-9 Billing: Yes ([id number]) Time Spent (min) 38 Advance Care Planning Advance Care Planning discussion: Exists, not on file Date of discussion: 09/27/24 Who was present: patient and me Forms completed: None Time spent: 1-15 minutes, on File Actual minutes spent: 1
[2024-09-27 13:02] VITALS: BP 110/74; BMI 25.6
== END 2024-09-27 13:52 | disposition home or self-care (01) ==
LOC: HO.HMCH 12:56
PROVIDERS: PCP Internal Medicine; Visit Provider Internal Medicine
DX: Z00.00 Encounter for general adult medical examination without abnormal findings (principal); R97.20 Elevated prostate specific antigen [PSA]; E11.9 Type 2 diabetes mellitus without complications; Z23 Encounter for immunization

== ENCOUNTER → 2024-09-27 12:55 | Outpatient (BNVA) | payer MEDICARE, MEDICAID, SELFPAY | PROVIDERS: PCP Internal Medicine; Visit Provider Internal Medicine | DX: Z00.00 Encounter for general adult medical examination without abnormal findings (principal); Z23 Encounter for immunization; R97.20 Elevated prostate specific antigen [PSA]; E11.9 Type 2 diabetes mellitus without complications; E78.5 Hyperlipidemia, unspecified; I10 Essential (primary) hypertension | CPT/HCPCS: 83036; 90471; 90677; 96127; 99212 ==

== ENCOUNTER 2024-11-28 10:50 | Outpatient (AMB) | payer MEDICARE, MEDICAID, SELFPAY ==
--- NOTE | 2024-11-28 11:16 | MHC.OFFVIS ---
Intake Visit Reasons: elevated PSA Intake Note: New patient presents today for initial visit for elevated PSA 09/26 Total PSA: 4.78 09/26 Free PSA: 19 Urology Medication:Tadalafil Blood Thinner:None Antibiotic Allergies:None PVR:38ml Allergies Penicillins [PENICILLINS] Allergy (Intermediate, Verified 11/28/24 11:17) RASH HPI Comments Details: 11/28/24-- History of Present Illness - The patient is a 69-year-old male presenting with an elevated PSA level: - Most recent PSA level of 4.78 ng/mL, higher than the normal range. - No previous PSA levels were recorded. - Reports family history of cardiac incidents but no cancer. - Non-smoker with no familial cancer history. - Under medication for blood pressure and cholesterol. Urinary Symptoms Review - The patient reports nocturia, waking up at night to urinate. - No mention of painful urination or significant changes in urinary frequency during the day. Results - Labs: PSA level of 4.78 ng/mL on September 26, 2024. Discussion Notes I discussed with the patient the elevation in PSA level and the potential causes including benign prostatic hyperplasia and prostate cancer. We covered the [place] [employer] guidelines, emphasizing that prostate cancer can often be slow-growing, and aggressive action is not always immediately necessary. I explained the role of the prostate, PSA production, and factors that can influence PSA levels. We discussed initiating treatment with Finasteride to reduce prostate size over three months, recalibrating PSA levels following this period. Monitoring for symptom changes and evaluating the PSA after medication was detailed, recommending that no ejaculation occur 48 hours prior to testing to ensure accurate PSA measurement. Plan 1. 5 months with ejaculatory precautions: - Ultrasound study of kidneys, bladder, and prostate planned. - Follow-up in four months with pre-appointment PSA test. Patient Instructions - Take Finasteride 5 mg once daily as prescribed. - Avoid ejaculation 48 hours before PSA test. - Return in four months for a follow-up, ensuring PSA test is done two weeks prior. - Contact the clinic if experiencing any new or worsening symptoms. - Adhere to regular medication and lifestyle adjustments for blood pressure and cholesterol management. [facility] Medical History Physical exam Hypovitaminosis D Long-term use of aspirin therapy Pure hypercholesterolemia Essential hypertension Diabetes mellitus Surgical History History of cataract removal with insertion of prosthetic lens H/O hernia repair History of shoulder surgery Family History Father Hypertension CVD (cardiovascular disease) Myocardial infarction Mother Diabetes Aneurysm Brother Diabetes Sister Alive and well Social History Housing: House Alcohol intake: current Alcohol intake frequency: holidays/special occasions only Alcohol type: beer Patient Tobacco Use Status: Never used Tobacco e-Cigarette/Vaping Use: Never Used Second Hand Smoke Exposure: No service: No Current occupational status: retired Cognitive needs: No Hearing needs: No Vision needs: Yes Review of Systems Const All systems reviewed & are unremarkable except as noted in HPI and below Reports no additional complaints Eyes Reports no additional complaints ENT Reports no additional complaints Card Reports no additional complaints Resp Reports no additional complaints GI Reports no additional complaints Reports as per HPI Musc Reports no additional complaints Skin/Breast Reports system reviewed and no additional complaints, except as documented Neuro Reports no additional complaints Psych Reports no additional complaints Endo Reports no additional complaints [place]/Lymph Reports no additional complaints Aller/Immun Reports no additional complaints Physical Exam Const General: healthy appearing, no acute distress and well developed Orientation/consciousness: patient oriented x3 HEENT Head: Yes normocephalic and Yes atraumatic Eyes Conjunctivae: conjunctivae normal Neck Neck: Yes normal visual inspection Chest Chest palpation & inspection: normal inspection of the chest Resp Effort & Inspection: normal respiratory effort GI Inspection: Yes normal to inspection Other: Prostate Exam: snooth, moderatedly enlarged, irregular, no hard nodules palpated Neuro General: patient oriented x3 Psych Appearance: grossly normal Affect: normal affect Results AMB Urinalysis, Automated UA Leukoctes 0 Vidal/uL Last Edit by Candy Garcia on 11/28/24 15:22 UA Nitrite Negative Last Edit by Candy Garcia on 11/28/24 15:22 UA Urobilinogen 3.5 mg/dL Last Edit by Candy Garcia on 11/28/24 15:22 UA Protein 0 mg/dL Last Edit by Candy Garcia on 11/28/24 15:22 UA pH 6.5 Last Edit by Candy Garcia on 11/28/24 15:22 UA Blood 0 Arnoldo/uL Last Edit by Candy Garcia on 11/28/24 15:22 UA Specific [place] 1.015 Last Edit by Candy Garcia on 11/28/24 15:22 UA Ketone Negative Last Edit by Candy Garcia on 11/28/24 15:22 UA Bilirubin 0 mg/dL Last Edit by Candy Garcia on 11/28/24 15:22 UA Glucose 0 mg/dL Last Edit by Candy Garcia on 11/28/24 15:22 Results Reviewed Results Reviewed: Laboratory Last Values Urine pH (Auto) 6.5 11/28/24 14:13 Specific [place] (Auto) 1.015 11/28/24 14:13 Urine Protein (Auto) 0 mg/dL 11/28/24 14:13 Glucose (UA)(Auto) 0 mg/dL 11/28/24 14:13 Urine Ketones (Auto) Negative 11/28/24 14:13 Urine Blood (Auto) 0 Arnoldo/uL 11/28/24 14:13 Urine Nitrite (Auto) Negative 11/28/24 14:13 Urine Bilirubin (Auto) 0 mg/dL 11/28/24 14:13 Urine Urobilinogen (Auto) 3.5 mg/dL 11/28/24 14:13 Leukocyte Esterase (Auto) 0 Vidal/uL 11/28/24 14:13 Assessment & Plan Assessment & Plan (1) Elevated PSA: Code(s): R97.20 - Elevated prostate specific antigen [PSA] Category: Medical (2) Nocturia: Code(s): R35.1 - Nocturia Category: Medical (3) BPH loc w urin obs/LUTS: Code(s): N40.1 - Benign prostatic hyperplasia with lower urinary tract symptoms Category: Medical Orders: Orders US retroperitoneal comp Today N40.1 - Benign prostatic hyperplasia with lower urinary tract symptoms, R35.1 - Nocturia, R97.20 - Elevated prostate specific antigen [PSA] AMB Post Void Residual by ultrasound Today N40.1 - Benign prostatic hyperplasia with lower urinary tract symptoms, R35.1 - Nocturia, R97.20 - Elevated prostate specific antigen [PSA] AMB Urinalysis Automated Today N40.1 - Benign prostatic hyperplasia with lower urinary tract symptoms, R35.1 - Nocturia, R97.20 - Elevated prostate specific antigen [PSA] PSA,Total (Free>4and<10) 3 Months R97.20 - Elevated prostate specific antigen [PSA] Medications: New finasteride (Proscar) 5 mg PO DAILY 90 tabs 3RF Patient Instructions: The patient had an opportunity to ask questions regarding treatment plan. The patient expressed understanding and agreement with the above treatment plan. The patient is aware they should contact our office by phone for worsening of their current condition or the appearance of new symptoms. Compliance is encouraged with any medications and followup testing that is ordered. It is a privilege to be allowed the opportunity to participate in the urologic care of your patient. If you have any questions or concerns regarding treatment for the above conditions please do not hesitate to contact me. The office telephone contact is [phone]. This note is constructed in part using voice recognition software. While every effort has been made to ensure accuracy personal computer network analyst errors may have been included. Yours sincerely, Rhonda Figueroa MD Scribe Plan - Not visible on output: Patient was informed and verbally consented to the use of an ambient scribe for clinic note documentation during this visit. Coding Level of Care Code New Pt Level 4 (04331) Diagnoses Elevated PSA R97.20 Nocturia R35.1 BPH loc w urin obs/LUTS N40.1
== END 2024-11-28 12:05 | disposition home or self-care (01) ==
LOC: HO.HUSH 10:51
PROVIDERS: PCP Internal Medicine; Visit Provider Urology
DX: R35.1 Nocturia (principal); R97.20 Elevated prostate specific antigen [PSA]; N40.1 Benign prostatic hyperplasia with lower urinary tract symptoms

== ENCOUNTER → 2024-11-28 10:50 | Outpatient (BNVA) | payer MEDICARE, MEDICAID, SELFPAY | PROVIDERS: PCP Internal Medicine; Visit Provider Urology | DX: R97.20 Elevated prostate specific antigen [PSA] (principal); N40.1 Benign prostatic hyperplasia with lower urinary tract symptoms; R35.1 Nocturia | CPT/HCPCS: 81003; 99202 ==

== ENCOUNTER 2025-02-03 08:58 | Outpatient (REF) | payer MEDICARE, MEDICAID, SELFPAY ==
--- OUTSIDE RECORDS SUMMARY | 2025-02-03 09:15 | XMS_ITS | Patient Health Record ---
Author Organization [facility] Address [address] [place] [phone] Care Team Providers Care Edge Bonder Name Role Phone Elina (RETIRED) Eduard GRAY Primary Care Provide r Unavailable Davion Painting Unavailable [phone] Allergies Allergen (clinical drug ingredient) Drug/Non Drug Allergy documented on EMR Reaction Allergy Type Onset Date Status Penicillin rash Drug Allergy Active Reason For Referral No Information Medications Medication SIG (Take, Route, Frequency, Duration) Notes Start Date End Date Status metFORMIN HCl 500 MG 1 tablet with a suri l Orally Once a day for 30 day(s) Active Aspir-81 81 MG 1 tablet Orally Once a day for 30 day(s) Active Multi Vitamin/Minerals - as directed Orally QD Active Fish Oil 1200 MG 1 capsule Orally thr ee x a day Active Vitamin D 1000 UNIT 1 tablet Orally Once a day for 30 day(s) Active Lisinopril-hydroCHLOROthiaz rell 20-25 MG 1 tablet Orally Once a day for 30 day(s) Active Atorvastatin Calcium 40 MG 1 tablet Oral ly Once a day Active Immunizations Vaccine Route Administration Date Status Comme nts Influenza Unknown 06/25/2018 Refused Social History Tobacco Use: Social History Observation Description Date Details (start date - stop date) Never Smoker NA - NA Tobacco Use/Smoking Question Answer Notes Patient is a nonsmoker Alcohol Screen Question Answer Notes Did you have a drink contain ing alcohol in the past year? Yes How often did you have a dri nk containing alcohol in the past year? Monthly or less (1 point) How many drinks did you have on a typical day when you were drinking in the past year? 1 or 2 drinks (0 point) How often did you have 6 or more drinks on one occasion in the past year? Never (0 point) Points 1 Interpretation Negative Section Notes: Nonsmoker; no sig alcohol Problems Problem Type SNOMED Code ICD Code Onset Dates Problem Status W/U Status Risk Notes Problem 845277931 Encounter for screening for malignant neoplasm of colon (Z12.11) Active confirmed Problem [id number] Pre-procedural examination (Z01.818) Active confirmed Plan Of Treatment Pending Test Test Name Order Date GI BIOPSY 07/23/2018 Future Test Test Name Order Date COLONOSCOPY 06/25/2018 Insurance Providers Payer Name Payer Address Payer Phone Subscriber Number Group Number Insured Name Patient Relationship to Insured Coverage Start Date Coverage End Date [facility] [address] [place], [place] [id number] A[place]EN POE Self - patient is the insured Medical (General) History Medical History History ICD Code Denies [place],CVA,Lung disease,renal disease Hypertension NIDDM Hyperlipidemia Neg. screening colonoscopy in 11/2007 Surgical History Surgery Date(Month/Year) Right Shoulder surgery
[2025-02-03 10:21] LABS: Alanine Aminotransferase 30 U/L (0-40); Albumin Level 5.0 g/dL (3.5-5.0); Alkaline Phosphatase 52 U/L (39-117); Anion Gap 14 (12-20); Aspartate Amino Transferase 28 U/L (5-37); Blood Urea Nitrogen 28 mg/dL (9-16); Calcium 9.9 mg/dL (8.4-10.2); Carbon Dioxide 28 mmol/L (22-29); Chloride 102 mmol/L (96-108); Cholesterol 111 mg/dL (<200); Estimated Glomerular Filt Rate 59; HDL Cholesterol 38 mg/dL (>40); Potassium 4.0 mmol/L (3.3-5.1); Sodium 140 mmol/L (135-145); Total Protein 7.3 g/dL (6.5-8.0); Triglycerides 104 mg/dL (<150)
[2025-02-03 10:31] LABS: PSA,Total (Free>4and<10) 2.98 ng/mL (0.00-4.00)
[2025-02-03 11:22] LABS: Microalbum/Creatinine Ratio Ur 8.0 ug/mg cr (<30)
== END 2025-02-03 08:59 | disposition home or self-care (01) ==
LOC: HO.LAB 08:58
PROVIDERS: Urology; PCP Internal Medicine; Visit Provider Internal Medicine
DX: E11.9 Type 2 diabetes mellitus without complications (principal); R97.20 Elevated prostate specific antigen [PSA]; E78.5 Hyperlipidemia, unspecified; E55.9 Vitamin D deficiency, unspecified; R80.9 Proteinuria, unspecified; Z12.5 Encounter for screening for malignant neoplasm of prostate
CPT/HCPCS: 36415; 80053; 80061; 82043; 82306; 82570; 84153

== ENCOUNTER 2025-02-06 13:38 | Outpatient (AMB) | payer MEDICARE, MEDICAID, SELFPAY ==
--- NOTE | 2025-02-06 13:41 | MHC.PC.OV ---
Vital Signs 02/06/25 13:43 Height 6 ft Weight 179 lb 8 oz BMI 24.3 BP 122/60 Blood Pressure Location Lt brachial Position Sitting Pulse 54 Pulse Source Pulse Oximeter Pulse Oximetry (%) 97 Oxygen Delivery Method Room Air Intake Visit Reasons: dm Psychologist Personnel Required: No Accompanied by: Self / Same As Patient Allergies Penicillins (PENICILLINS) Allergy (Intermediate, Verified 02/06/25 13:53) RASH Medication List - Last Reconciled 02/06/25 by Melanie Lux MD atorvastatin 80 mg PO BEDTIME 90 days finasteride (Proscar) 5 mg PO DAILY lisinopril-hydrochlorothiazide 20-25 mg 1 tab PO DAILY metformin ER 2,000 mg (4 x 500 mg) PO DAILY multivitamin 1 tab PO DAILY omega-3 fatty acids (Fish Oil Concentrate) 1,000 mg PO DAILY tadalafil 20 mg PO DAILY PRN 30 days Tobacco use date assessed: 02/06/25 Fall risk assessment: No Falls in past year Last assessed Fall Risk: 02/06/25 Dental Screening Dental Screen Date: 02/06/25 Did you have a dental visit in the last 12 months?: No Did you have a dental problem in the last 6 months where you did not have access to dental care?: No Was dental information given to patient?: No HPI HPI Comments History of Present Illness Details The patient is a 69-year-old male presenting for a follow-up of his chronic conditions and review of recent blood work. The patient has a history of hypertension, currently managed with lisinopril hydrochlorothiazide, and his blood pressure was recorded at 122/60 mmHg during this visit, indicating good control. He also has hyperlipidemia, for which he is taking atorvastatin 80 mg, and recent lab results show an LDL level of 53 mg/dL, which is below the target of 70 mg/dL. The patient is also managing benign prostatic hyperplasia with finasteride 5 mg, and recent prostate examination results were normal. He has a history of type 2 diabetes mellitus, managed with metformin, and his recent blood glucose level was 102 mg/dL, indicating good control. The patient underwent cataract surgery in the past and has not had any additional corrective procedures. [facility] Medical History Physical exam Hypovitaminosis D Long-term use of aspirin therapy Pure hypercholesterolemia Essential hypertension Diabetes mellitus Surgical History History of cataract removal with insertion of prosthetic lens H/O hernia repair History of shoulder surgery Family History Father Hypertension CVD (cardiovascular disease) Myocardial infarction Mother Diabetes Aneurysm Brother Diabetes Sister Alive and well Social History Housing: House Alcohol intake: current Alcohol intake frequency: holidays/special occasions only Alcohol type: beer Patient Tobacco Use Status: Never used Tobacco e-Cigarette/Vaping Use: Never Used Second Hand Smoke Exposure: No service: No Current occupational status: retired Cognitive needs: No Hearing needs: No Vision needs: Yes Questionnaire PHQ-9 Over the last 2 weeks, how often have you been bothered by any of the following problems? 1. Little interest or pleasure in doing things: not at all 2. Feeling down, depressed, or hopeless: not at all 3. Trouble falling or staying asleep, or sleeping too much: not at all 4. Feeling tired or having little energy: not at all 5. Poor appetite or overeating: not at all 6. Feeling bad about yourself - or that you are a failure or have let yourself or your family down: not at all 7. Trouble concentrating on things, such as reading the newspaper or watching television: not at all 8. Moving or speaking so slowly that other people could have noticed. Or the opposite - being so fidgety or restless that you have been moving around a lot more than usual: not at all 9. Thoughts that you would be better off or of hurting yourself in some way: not at all Total score: 0 Depression Screening Interpretation: Negative Depression Screening Done: Yes 78971 - PHQ-9 Billing: Yes Source: Developed by Drs. Davion Saldivar, Rochelle Dave, Wayne Garcia and colleagues, with an educational keri from [employer]. Thrive Questionnaire Date Thrive assessed: 02/06/25 I am a: Patient What is your living situation today?: I have a steady place to live Within the past 12 months, did the food you bought not last and you didn't have the money to get more?: Sometimes True Within the past 12 months, did you worry whether your food would run out before you got money to buy more?: Sometimes True Do you have trouble paying for medicines?: No Do you have trouble getting transportation to medical appointments?: No Do you have trouble paying your heating and electricity bill?: Yes Do you have trouble taking care of your child, family member or friend?: No Do you have trouble with day-to-day activities such as bathing, preparing meals, shopping, managing finances, etc.?: No Are you currently unemployed and looking for a job?: I choose not to answer this question Are you interested in more education?: No Please select the resources that you would like help with: None Currently or been in a relationship where the following occur: No concerns reported THRIVE Score: 3 AUDIT C Alcohol Use Questionnaire (AUDIT-C) 1. How often do you have a drink containing alcohol?: 2-4 times a month 2. How many drinks containing alcohol do you have on a typical day when you are drinking?: 3 or 4 3. How often do you have six or more drinks on one occasion?: Never Total Score: 3 SARAH-7 AMB Questionnaire SARAH-7 Date SARAH - 7 assessed: 02/06/25 Feeling nervous, anxious, or on edge: 0 = Not at all Not being able to stop or control worryin = Not at all Worrying too much about different things: 0 = Not at all Trouble relaxin = Not at all Being so restless that it is hard to sit still: 0 = Not at all Becoming easily annoyed or irritable: 0 = Not at all Feeling afraid as if something awful might happen: 0 = Not at all Total SARAH-7 score (0-4 normal; 5-9 mild; 10-14 moderate; 15-21 severe): 0 Source: Developed by Drs. Davion Saldivar, Rochelle Dave, Wayne Garcia and colleagues, with an educational keri from [employer]. SARAH-7 Assessment Billing SARAH-7 Assessment Tool: SARAH-7 Assessment 37299 Review of Systems Const All systems reviewed & are unremarkable except as noted in HPI and below Card Denies chest pain at rest, Denies chest pain with activity, Denies edema, Denies irregular heart rhythm, Denies claudication, Denies dyspnea, Denies dyspnea on exertion, Denies orthopnea, Denies paroxysmal nocturnal dyspnea and Denies slow heart rate Resp Denies cough, Denies dyspnea and Denies dyspnea on exertion GI Denies abdominal pain, Denies change in bowel habits, Denies excessive flatus, Denies nausea and Denies vomiting Physical exam (Primary Care) Vital Signs: Last Vital Signs Pulse 54 02/06/25 13:43 BP 122/60 02/06/25 13:43 Pulse Ox 97 02/06/25 13:43 Oxygen Delivery Method Room Air 02/06/25 13:43 BMI result Body Mass Index 24.3 Tobacco/Smoking Status: Tobacco use Status Tobacco use date assessed 02/06/25 02/06/25 13:47 Patient Tobacco Use Status Never used Tobacco 02/06/25 13:47 Tobacco use type 03/11/21 09:09 e-Cigarette/Vaping Use Never Used 02/06/25 13:47 PHQ-9: PHQ-9 Score PHQ-9: Total score 0 02/06/25 14:22 Depression Screening Interpretation: Negative Thrive Assessment: Date of Thrive Assessment Date Thrive assessed 02/06/25 02/06/25 13:47 Currently or been in a relationship where the following occur: No concerns reported Resp Effort & Inspection: normal respiratory effort Auscultation: clear to auscultation bilaterally Cardio Jugular venous distension: no JVD Rate: regular rate Rhythm: regular rhythm Heart sounds: S1 normal heart sound present and S2 normal heart sound present Extrem General: Yes full ROM Results AMB Hemoglobin A1c AMB Hemoglobin A1c 5.8 % Last Edit by Amber Alberts MA on 02/06/25 14:06 Results Reviewed Results Reviewed: Laboratory Last Values Hgb A1c (Clinic) 5.8 % (4.0-6.0) 02/06/25 14:00 Coding Level of Care Code Est Pt Level 4 (00385) Complex EM visit Add On G2211 Diagnoses Essential hypertension I10 Pure hypercholesterolemia E78.00 Type 2 diabetes mellitus without complication, without long-term current use of insulin E11.9 Diabetes mellitus complication status: without complication Diabetes mellitus senior care insulin use: without senior care use Diabetes mellitus type: type 2 Hypovitaminosis D E55.9 BPH loc w urin obs/LUTS N40.1 Additional Codes SARAH-7 Assessment Billing - SARAH-7 Assessment Tool: SARAH-7 Assessment 94182 ([id number]) PHQ-9 - 06853 - PHQ-9 Billing: Yes ([id number]) Time Spent (min) 23 Assessment & Plan Assessment & Plan (1) Essential hypertension: Code(s): I10 - Essential (primary) hypertension Category: Medical (2) Pure hypercholesterolemia: Code(s): E78.00 - Pure hypercholesterolemia, unspecified Category: Medical (3) Diabetes mellitus: Code(s): E11.9 - Type 2 diabetes mellitus without complications Category: Medical Qualifiers: Diabetes mellitus complication status: without complication Diabetes mellitus senior care insulin use: without senior care use Diabetes mellitus type: type 2 Qualified Code(s): E11.9 - Type 2 diabetes mellitus without complications (4) Hypovitaminosis D: Code(s): E55.9 - Vitamin D deficiency, unspecified Category: Medical (5) BPH loc w urin obs/LUTS: Code(s): N40.1 - Benign prostatic hyperplasia with lower urinary tract symptoms Category: Medical Plan The patient's current medication regimen will be continued as it is effectively managing his conditions. Regular monitoring of blood pressure and cholesterol levels will be maintained to ensure ongoing control. The patient is advised to schedule an eye examination, as it has been a while since his last one, despite having cataract surgery in the past. Follow-up appointments will be scheduled to monitor his chronic conditions and adjust treatment as necessary. Patient was informed and verbally consented to the use of an ambient scribe for clinic note documentation during this visit. Orders: Orders Comprehensive [place]. Panel Fast 4 Months E11.9 - Type 2 diabetes mellitus without complications AMB Hemoglobin A1c Today Z13.9 - Encounter for screening, unspecified Microalbumin, Random (w Creat) 4 Months R80.9 - Proteinuria, unspecified Lipid Panel 4 Months E78.5 - Hyperlipidemia, unspecified
[2025-02-06 13:43] VITALS: BP 122/60; PULSE 54; O2SAT 97; BMI 24.3
--- OUTSIDE RECORDS SUMMARY | 2025-02-06 14:33 | XMS_ITS | Patient Health Record ---
Author Organization [facility] Address [address] [place] [phone] Care Team Providers Care Mold Capper Name Role Phone Elina (RETIRED) Eduard GRAY Primary Care Provide r Unavailable Davion Painting Unavailable [phone] Allergies Allergen (clinical drug ingredient) Drug/Non Drug [...] Problem Status W/U Status Risk Notes Problem 745732679 Encounter for screening for malignant neoplasm of colon (Z12.11) Active confirmed Problem [id number] Pre-procedural examination (Z01.818) Active confirmed Plan Of Treatment Pending Test Test Name Order Date GI BIOPSY 07/23/2018 Future Test Test Name Order Date COLONOSCOPY 06/25/2018 Insurance Providers Payer Name Payer Address Payer Phone Subscriber Number Group Number Insured Name Patient Relationship to Insured Coverage Start Date Coverage End Date [facility] [address] [place], [place] [id number] AUSTEN POE Self - patient is the insured Medical (General) History Medical History History ICD Code Denies [place],CVA,Lung disease,renal disease Hypertension NIDDM Hyperlipidemia Neg. screening colonoscopy in 11/2007 Surgical History Surgery Date(Month/Year) Right Shoulder surgery
== END 2025-02-06 14:04 | disposition home or self-care (01) ==
LOC: HO.HMCH 13:39
PROVIDERS: PCP Internal Medicine; Visit Provider Internal Medicine
DX: I10 Essential (primary) hypertension (principal); E78.00 Pure hypercholesterolemia, unspecified; E11.9 Type 2 diabetes mellitus without complications; E55.9 Vitamin D deficiency, unspecified; N40.1 Benign prostatic hyperplasia with lower urinary tract symptoms; Z13.9 Encounter for screening, unspecified

== ENCOUNTER → 2025-02-06 13:38 | Outpatient (BNVA) | payer MEDICARE, MEDICAID, SELFPAY | PROVIDERS: PCP Internal Medicine; Visit Provider Internal Medicine | DX: I10 Essential (primary) hypertension (principal); E78.00 Pure hypercholesterolemia, unspecified; E11.9 Type 2 diabetes mellitus without complications; E55.9 Vitamin D deficiency, unspecified; N40.1 Benign prostatic hyperplasia with lower urinary tract symptoms | CPT/HCPCS: 83036; 96127; 99212 ==

== ENCOUNTER 2025-03-23 08:37 | Outpatient (REF) | payer MEDICARE, MEDICAID, SELFPAY ==
--- OUTSIDE RECORDS SUMMARY | 2025-03-23 08:58 | XMS_ITS | Patient Health Record ---
Author Organization [facility] Address [address] [place] [phone] Care Team Providers Care Circular Sawyer Helper Name Role Phone Elina (RETIRED) Eduard GRAY Primary Care Provide r Unavailable Davion Painting Unavailable [phone] Allergies Allergen (clinical drug ingredient) Drug/Non Drug [...] Problem Status W/U Status Risk Notes Problem [id number] Encounter for screening for malignant neoplasm of colon (Z12.11) Active confirmed Problem [id number] Pre-procedural examination (Z01.818) Active confirmed Plan Of Treatment Pending Test Test Name Order Date GI BIOPSY 07/23/2018 Future Test Test Name Order Date COLONOSCOPY 06/25/2018 Insurance Providers Payer Name Payer Address Payer Phone Subscriber Number Group Number Insured Name Patient Relationship to Insured Coverage Start Date Coverage End Date [facility] [address] [place], [place] [id number] AUSTEN POE Self - patient is the insured Medical (General) History Medical History History ICD Code Denies [place],CVA,Lung disease,renal disease Hypertension NIDDM Hyperlipidemia Neg. screening colonoscopy in 11/2007 Surgical History Surgery Date(Month/Year) Right Shoulder surgery
[2025-03-23 10:23] LABS: PSA,Total (Free>4and<10) 2.51 ng/mL (0.00-4.00)
== END 2025-03-23 08:38 | disposition home or self-care (01) ==
LOC: HO.LAB 08:37
PROVIDERS: PCP Internal Medicine; Visit Provider Urology
DX: R97.20 Elevated prostate specific antigen [PSA] (principal); Z12.5 Encounter for screening for malignant neoplasm of prostate
CPT/HCPCS: 36415; 84153

== ENCOUNTER 2025-03-27 11:26 | Outpatient (REF) | payer MEDICARE, MEDICAID, SELFPAY ==
--- NOTE | ~2025-03-27 | US_ITS ---
CLINICAL HISTORY: R97.20 - Elevated prostate specific antigen [PSA] US Renal Comparison: None provided Findings: Right kidney normal size and echotexture, 13.6 cm length. Multiple benign-appearing cysts the largest within the midpole measuring up to 2 cm. Left kidney normal size and echotexture, 11.2 cm length. Benign-appearing midpole cyst measuring up to 2.2 cm. No hydronephrosis of either kidney. Normal color Doppler. Urinary bladder is unremarkable. Prevoid volume 225 mL. Postvoid volume 52 mL. Bilateral ureteral jets are visualized. The prostate gland is enlarged measuring 37 mL. There is the suggestion of a 1.0 x 1.1 x 0.6 cm heterogeneous cystic and solid nodule or lesion. IMPRESSION: Benign renal cysts. No obstructive uropathy. Utcai-tg-lnfmwtmz postvoid residual. The prostate gland is enlarged and demonstrates a nodular lesion as detailed. This document has been electronically signed by: Tad Mcdowell MD on 03/28/2025 11:07:14
--- OUTSIDE RECORDS SUMMARY | 2025-03-27 14:06 | XMS_ITS | Patient Health Record ---
Author Organization [facility] Address [address] [place] [id number] Care Team Providers Care Rn Gyn Name Role Phone Elina (RETIRED) Eduard GRAY Primary Care Provide r Unavailable Davion Painting Unavailable [phone] Allergies Allergen (clinical drug ingredient) Drug/Non Drug [...] Problem Status W/U Status Risk Notes Problem [id number] Encounter for screening for malignant neoplasm of colon (Z12.11) Active confirmed Problem [id number] Pre-procedural examination (Z01.818) Active confirmed Plan Of Treatment Pending Test Test Name Order Date GI BIOPSY 07/23/2018 Future Test Test Name Order Date COLONOSCOPY 06/25/2018 Insurance Providers Payer Name Payer Address Payer Phone Subscriber Number Group Number Insured Name Patient Relationship to Insured Coverage Start Date Coverage End Date [facility] [address] [place], [place] [id number] [address] POE Self - patient is the insured Medical (General) History Medical History History ICD Code Denies SD,CVA,Lung disease,renal disease Hypertension NIDDM Hyperlipidemia Neg. screening colonoscopy in 11/2007 Surgical History Surgery Date(Month/Year) Right Shoulder surgery
== END 2025-03-27 11:27 | disposition home or self-care (01) ==
LOC: HO.HMGCX 11:26
PROVIDERS: PCP Internal Medicine; Visit Provider Urology
DX: R97.20 Elevated prostate specific antigen [PSA] (principal); R35.1 Nocturia; N40.1 Benign prostatic hyperplasia with lower urinary tract symptoms
CPT/HCPCS: 76770

== ENCOUNTER → 2025-03-27 11:29 | Outpatient (BNV) | payer MEDICARE, MEDICAID, SELFPAY | PROVIDERS: PCP Internal Medicine; Visit Provider Radiology Vascular & Interventional Radiology | DX: N28.1 Cyst of kidney, acquired (principal); N40.0 Benign prostatic hyperplasia without lower urinary tract symptoms | CPT/HCPCS: 76770 ==

== ENCOUNTER 2025-04-10 13:04 | Outpatient (AMB) | payer MEDICARE, MEDICAID, SELFPAY ==
--- NOTE | 2025-04-10 13:24 | A.OFFVIS_ITS ---
Intake Visit Reasons: r/s from 03/31 Intake Note: Patient presents today for 4m/follow up/US/PSA * 03/23 PSA:2.51 * 03/28 Retroperitoneal US Urology Medication:Tadalafil Blood Thinner:None Antibiotic Allergies:None PVR:78ml Allergies Penicillins (PENICILLINS) Allergy (Intermediate, Verified 04/10/25 13:24) RASH HPI Comments Details: 04/10/2025--Joseph is here in follow-up for BPH and elevated PSA. He is currently on finasteride and tadalafil. Most recent 03/23/25--PSA level of 2.51 ng/mL, US renal - 03/27/25--bilateral renal cysts. Plan MRI - prostate 11/28/24-- - The patient is a 69-year-old male presenting with an elevated PSA level: - Most recent PSA level of 4.78 ng/mL, higher than the normal range. - No previous PSA levels were recorded. - Reports family history of cardiac incidents but no cancer. - Non-smoker with no familial cancer history. - Under medication for blood pressure and cholesterol. Urinary Symptoms Review - The patient reports nocturia, waking up at night to urinate. Results - Labs: PSA level of 4.78 ng/mL on September 26, 2024. Plan 1. Ultrasound study of kidneys, bladder, and prostate planned. - Follow-up in four months with pre-appointment PSA test. [facility] Medical History Physical exam Hypovitaminosis D Long-term use of aspirin therapy Pure hypercholesterolemia Essential hypertension Diabetes mellitus Surgical History History of cataract removal with insertion of prosthetic lens H/O hernia repair History of shoulder surgery Family History Father Hypertension CVD (cardiovascular disease) Myocardial infarction Mother Diabetes Aneurysm Brother Diabetes Sister Alive and well Social History Housing: House Alcohol intake: current Alcohol intake frequency: holidays/special occasions only Alcohol type: beer Patient Tobacco Use Status: Never used Tobacco e-Cigarette/Vaping Use: Never Used Second Hand Smoke Exposure: No service: No Current occupational status: retired Cognitive needs: No Hearing needs: No Vision needs: Yes Office Procedures Post Void Residual Post Residual Void Post Void Residual (PVR): 78 [id number] Void Residual by ultrasound Results Reviewed Results Reviewed: Laboratory Last Values Urine pH (Auto) 6.0 04/10/25 07:56 Specific [place] (Auto) 1.015 04/10/25 07:56 Urine Protein (Auto) 0 mg/dL 04/10/25 07:56 Glucose (UA)(Auto) 0 mg/dL 04/10/25 07:56 Urine Ketones (Auto) Negative 04/10/25 07:56 Urine Blood (Auto) 0 Arnoldo/uL 04/10/25 07:56 Urine Nitrite (Auto) Negative 04/10/25 07:56 Urine Bilirubin (Auto) 0 mg/dL 04/10/25 07:56 Urine Urobilinogen (Auto) 0.2 mg/dL 04/10/25 07:56 Leukocyte Esterase (Auto) 0 Vidal/uL 04/10/25 07:56 Date of Service: 03/27/25 US Renal Comparison: None provided Findings: Right kidney normal size and echotexture, 13.6 cm length. Multiple benign-appearing cysts the largest within the midpole measuring up to 2 cm. Left kidney normal size and echotexture, 11.2 cm length. Benign-appearing midpole cyst measuring up to 2.2 cm. No hydronephrosis of either kidney. Normal color Doppler. Urinary bladder is unremarkable. Prevoid volume 225 mL. Postvoid volume 52 mL. Bilateral ureteral jets are visualized. The prostate gland is enlarged measuring 37 mL. There is the suggestion of a 1.0 x 1.1 x 0.6 cm heterogeneous cystic and solid nodule or lesion. IMPRESSION: Benign renal cysts. No obstructive uropathy. Siytg-rw-vzrrvueb postvoid residual. The prostate gland is enlarged and demonstrates a nodular lesion as detailed. Assessment & Plan Assessment & Plan (1) Elevated PSA: Code(s): R97.20 - Elevated prostate specific antigen [PSA] Category: Medical (2) Nocturia: Code(s): R35.1 - Nocturia Category: Medical (3) BPH loc w urin obs/LUTS: Code(s): N40.1 - Benign prostatic hyperplasia with lower urinary tract symptoms Category: Medical Plan MRI prostate Patient Instructions: The patient had an opportunity to ask questions regarding treatment plan. The patient expressed understanding and agreement with the above treatment plan. The patient is aware they should contact our office by phone for worsening of their current condition or the appearance of new symptoms. Compliance is encouraged with any medications and followup testing that is ordered. It is a privilege to be allowed the opportunity to participate in the urologic care of your patient. If you have any questions or concerns regarding treatment for the above conditions please do not hesitate to contact me. The office telephone contact is [phone]. This note is constructed in part using voice recognition software. While every effort has been made to ensure accuracy pulley mortiser operator errors may have been included. Yours sincerely, Rhonda Figueroa MD Coding Level of Care Code Est Pt Level 4 (97814) Diagnoses Elevated PSA R97.20 Nocturia R35.1 BPH loc w urin obs/LUTS N40.1 CPT Codes Post Residual Void - PVR CPT Code: 81547-[id number] Void Residual by ultrasound ([id number])
--- OUTSIDE RECORDS SUMMARY | 2025-04-10 15:58 | XMS_ITS | Patient Health Record ---
Author Organization [facility] Address [address] [place] [phone] Care Team Providers Care Motors Assembler Name Role Phone Elina (RETIRED) Eduard GRAY Primary Care Provide r Unavailable Davion Painting Unavailable [phone] Allergies Allergen (clinical drug ingredient) Drug/Non Drug Allergy documented on EMR Reaction Allergy Type Onset Date Status Penicillin rash Drug Allergy Active Reason For Referral No Information Medications Medication SIG (Take, Route, Frequency, Duration) Notes Start Date End Date Status metFORMIN HCl 500 MG 1 tablet with a suri l Orally Once a day; Duration: 30 day(s) Active Aspir-81 81 MG 1 tablet Orally Once a day; Duration: 30 day(s) Active Multi Vitamin/Minerals - as directed Orally QD Active Fish Oil 1200 MG 1 capsule Orally thr ee x a day Active Vitamin D 1000 UNIT 1 tablet Orally Once a day; Duration: 30 day(s) Active Lisinopril-hydroCHLOROthiaz rell 20-25 MG 1 tablet Orally Once a day; Duration: 30 day(s) Active Atorvastatin Calcium 40 MG [...] Problem Status W/U Status Risk Notes Problem Screening for malignant neoplasm of colon (388434329) Encounter for screening for malignant neoplasm of colon (Z12.11) Active confirmed Problem Pre-procedure evaluation check (494096763) Pre-procedural examination (Z01.818) Active confirmed Plan Of Treatment Pending Test Test Name Order Date GI BIOPSY 07/23/2018 Future Test Test Name Order Date COLONOSCOPY 06/25/2018 Insurance Providers Payer Name Payer Address Payer Phone Subscriber Number Group Number Insured Name Patient Relationship to Insured Coverage Start Date Coverage End Date [facility] [address] [place], [place] [id number] [phone] [id number] [address] POE Self - patient is the insured Medical (General) History Medical History History ICD Code Denies ID,CVA,Lung disease,renal disease Hypertension NIDDM Hyperlipidemia Neg. screening colonoscopy in 11/2007 Surgical History Surgery Date(Month/Year) Right Shoulder surgery
== END 2025-04-10 14:07 | disposition home or self-care (01) ==
LOC: HO.HUSH 13:05
PROVIDERS: PCP Internal Medicine; Visit Provider Urology
DX: R97.20 Elevated prostate specific antigen [PSA] (principal); N40.1 Benign prostatic hyperplasia with lower urinary tract symptoms; R35.1 Nocturia
CPT/HCPCS: 99214

== ENCOUNTER → 2025-04-10 13:04 | Outpatient (BNVA) | payer MEDICARE, MEDICAID, SELFPAY | PROVIDERS: PCP Internal Medicine; Visit Provider Urology | DX: R97.20 Elevated prostate specific antigen [PSA] (principal); N40.1 Benign prostatic hyperplasia with lower urinary tract symptoms; R35.1 Nocturia | CPT/HCPCS: 51798; 99212 ==

== ENCOUNTER 2025-05-29 08:56 | Outpatient (REF) | payer MEDICARE, MEDICAID, SELFPAY ==
--- NOTE | ~2025-05-29 | MR_ITS ---
EXAMINATION: MR PROSTATE WITHOUT THEN WITH IV CONTRAST, MR EXAM UNLISTED HISTORY: R97.20 - Elevated prostate specific antigen [PSA] TECHNIQUE: 1.5T body coil survey of the pelvis was performed. Phase array coil imaging of the prostate was performed in multiplanar high resolution axial, coronal, sagittal fast spin echo T2 and axial T1 weighted imaging sequences. Axial diffusion imaging at intermediate and high field performed with ADC mapping. Next, 9 mL Gadavist was given by intravenous infusion, and dynamic axial imaging performed. 3-D reconstructions and post-processing were performed on an independent workstation by the radiologist for biopsy planning using image fusion. COMPARISON: d CLINICAL DATA: Most recent PSA: 2.51 ng/mL on 03/23/2025. PSA Density: 0.48 ng/mL squared Prostate Biopsy: None reported. FINDINGS: Prostate size: 5.3 x 4.9 x 3.9 cm. Calculated prostate volume is 52.7 mL. Hemorrhage: None. Transitional Zone: There is moderate heterogeneous nodular hypertrophy of the transitional zone. There is an area of interest in the transitional zone as described below: Area of interest #1: Location: Right anterior transitional zone in the mid gland/apex measuring up to 1.9 cm (series 7, images 15-19). DWI PI-RADS v2.1 score: 5 T2 PI-RADS v2.1 score: 5 DCE PI-RADS v2.1 score: + Overall PI-RADS v2.1 score: 5 Capsular contact: yes Extracapsular extension: None Seminal vesicle invasion: None Neurovascular bundle involvement: Not Peripheral Zone: There is an area of interest in the peripheral zone as described below: Area of interest #2: Location: Left posteromedial peripheral zone at the apex measuring 6 mm (series 7, images 20-21). DWI PI-RADS v2.1 score: 3 T2 PI-RADS v2.1 score: 3 DCE PI-RADS v2.1 score: - Overall PI-RADS v2.1 score: 3 Capsular contact: None Extracapsular extension: None Seminal vesicle invasion: None Neurovascular bundle involvement: None Seminal Vesicles/Ejaculatory Ducts: Symmetric and normal in signal and caliber. Pelvic Lymph Nodes: No obturator or internal iliac lymph nodes meeting size criteria for adenopathy. Marrow Signal: Normal marrow signal and enhancement without focal lesion identified. MR/MR Prostate wo/w con IMPRESSION: Focus of abnormal signal intensity in the right anterior transitional zone, suspicious for clinically significant prostate carcinoma. Additional equivocal area of interest in the left posteromedial peripheral zone at the apex. If ultrasound-guided biopsy is to be performed, sampling of this region is also recommended. PI-RADS 5: Very high (clinically significant cancer is highly likely to be present) PI-RADS Assessment Categories PI-RADS 1: Very low (clinically significant cancer is highly unlikely to be present) PI-RADS 2: Low (clinically significant cancer is unlikely to be present) PI-RADS 3: Intermediate (the presence of clinically significant cancer is equivocal) PI-RADS 4: High (clinically significant cancer is likely to be present) PI-RADS 5: Very high (clinically significant cancer is highly likely to be present) [employer]. MR Prostate Imaging Reporting and Data System version 2.1. [email or web address] Electronically signed by: Davion Lomas MD 05/29/2025 10:57 AM KRISTIN TRAYLOR
== END 2025-05-29 08:57 | disposition home or self-care (01) ==
LOC: HO.MRI 08:56
PROVIDERS: PCP Internal Medicine; Visit Provider Urology
DX: R97.20 Elevated prostate specific antigen [PSA] (principal)
CPT/HCPCS: 72197; 76377; A9585

== ENCOUNTER → 2025-05-29 09:08 | Outpatient (BNV) | payer MEDICARE, MEDICAID, SELFPAY | PROVIDERS: PCP Internal Medicine; Visit Provider Radiology Diagnostic Radiology | DX: R97.20 Elevated prostate specific antigen [PSA] (principal); D30.00 Benign neoplasm of unspecified kidney; N40.0 Benign prostatic hyperplasia without lower urinary tract symptoms | CPT/HCPCS: 72197; 76377 ==

== ENCOUNTER 2025-06-08 09:59 | Outpatient (REF) | payer MEDICARE, MEDICAID, SELFPAY ==
[2025-06-08 13:33] LABS: Alanine Aminotransferase 33 U/L (0-40); Albumin Level 5.0 g/dL (3.5-5.0); Alkaline Phosphatase 54 U/L (39-117); Anion Gap 12 (12-20); Aspartate Amino Transferase 30 U/L (5-37); Blood Urea Nitrogen 19 mg/dL (9-16); Calcium 9.5 mg/dL (8.4-10.2); Carbon Dioxide 29 mmol/L (22-29); Chloride 105 mmol/L (96-108); Cholesterol 135 mg/dL (<200); Estimated Glomerular Filt Rate > 60; HDL Cholesterol 40 mg/dL (>40); Potassium 3.7 mmol/L (3.3-5.1); Sodium 142 mmol/L (135-145); Total Protein 7.4 g/dL (6.5-8.0); Triglycerides 111 mg/dL (<150)
== END 2025-06-08 10:00 | disposition home or self-care (01) ==
LOC: HO.LAB 09:59
PROVIDERS: PCP Internal Medicine; Visit Provider Urology
DX: N40.1 Benign prostatic hyperplasia with lower urinary tract symptoms (principal); E11.9 Type 2 diabetes mellitus without complications; R80.9 Proteinuria, unspecified; E78.5 Hyperlipidemia, unspecified
CPT/HCPCS: 36415; 51798; 80053; 80061; 81003; 82043; 82570

== ENCOUNTER 2025-06-08 09:59 | Outpatient (AMB) | payer MEDICARE, MEDICAID, SELFPAY ==
--- NOTE | 2025-06-08 10:04 | A.OFFVIS_ITS ---
Intake Visit Reasons: 8w/MRI (set(UA+PVR) Intake Note: 70 year old male percents today for 8 week /MRI 05/29 prostate MRI LAST PVR : 78 PVR : 20 ML Allergies Penicillins (PENICILLINS) Allergy (Intermediate, Verified 04/10/25 13:24) RASH HPI Comments Details: 06/08/25--Garth is here in follow-up for BPH and elevated PSA. He is currently on finasteride and tadalafil. 03/23/25--PSA level of 2.51 ng/mL. Here for fu, had MRI prostate Transitional zone right anterior 1.9 cm PI-RADS 5 peripheral zone--6 mm left posterior medial PI-RADS-3 year noise so I you as a review the PSA has been coming down with the finasteride on the ultrasound there was a questionable nodular and on the MRI there are 2 areas that are highlighted so area of interest 1. In the transitional zone there to means zones in the prostate the transition zone which is generally where the prostate tends to grow and in the peripheral zone is where we tend to see more of the cancers they are saying in the transitional zone they see an area of interest that is about 1.9 cm they gave a score of how abnormal it looks which goes from 1-5 and there scope scoring it at about a 5 the other area in the peripheral zone where is where we more likely see cancers they see a smaller area that they are saying is 3 which basically is equivocal meaning is not sure basically the only way of getting actual diagnosis of the would be to do a biopsy generally given the results of the MRI if any of these biopsies were positive we would know that were getting things that an early stage no other areas to show any extension outside of the prostate so generally we counseled patients that depending again on the information we got from the pathologist if either 1 of these are positive or we do not just do those 2 pieces we do kind of do other areas in the that is would not make sense to just do these and possibly some so we do 12 biopsies possibly 14 trying to get these to we get pathology again giving us abrade of if this is early or less it aggressive versus more aggressive and given all of that information is the pathology is low-grade we generally again advise you know surveillance monitoring which again includes more PSAs more MRIs and possibly additional biopsies whatever so we do this in the operating room and it would be done with anesthesia and so we would have to schedule this because we have you know the MRI we have to bring everything into the OR not the machine but the images so that we can map things out so far take a little bit of organizing so prior LD done as soon as possible but it could be a couple of months because we generally do a bit of organizing things the when he day are okay so when you go up to the front there is like a checklist of the hospital once our patients to fill out on any heart condition things like that even though we have information on your chart is just for that goes over there just to help them Joseph so you have a happy holiday SI so this isn't the worst news but it is something that means that we need to check your the cord is a live S you are welcome 04/10/2025--Garth is here in follow-up for BPH and elevated PSA. He is currently on finasteride and tadalafil. Most recent 03/23/25--PSA level of 2.51 ng/mL, US renal - 03/27/25--bilateral renal cysts. Plan MRI - prostate 11/28/24--- The patient is a 69-year-old male presenting with an elevated PSA level: - Most recent PSA level of 4.78 ng/mL, higher than the normal range. - No previous PSA levels were recorded. - Reports family history of cardiac incidents but no cancer. - Non-smoker with no familial cancer history. - Under medication for blood pressure and cholesterol. Urinary Symptoms Review - The patient reports nocturia, waking up at night to urinate. Results - Labs: PSA level of 4.78 ng/mL on September 26, 2024. Plan 1. Ultrasound study of kidneys, bladder, and prostate planned. - Follow-up in four months with pre-appointment PSA test. [facility] Medical History Physical exam Hypovitaminosis D Long-term use of aspirin therapy Pure hypercholesterolemia Essential hypertension Diabetes mellitus Surgical History History of cataract removal with insertion of prosthetic lens H/O hernia repair History of shoulder surgery Family History Father Hypertension CVD (cardiovascular disease) Myocardial infarction Mother Diabetes Aneurysm Brother Diabetes Sister Alive and well Social History Housing: House Alcohol intake: current Alcohol intake frequency: holidays/special occasions only Alcohol type: beer Patient Tobacco Use Status: Never used Tobacco e-Cigarette/Vaping Use: Never Used Second Hand Smoke Exposure: No service: No Current occupational status: retired Cognitive needs: No Hearing needs: No Vision needs: Yes Office Procedures Post Void Residual Post Residual Void Post Void Residual (PVR): 20 [id number] Void Residual by ultrasound Results AMB Urinalysis, Automated UA Leukoctes 0 Vidal/uL Last Edit by Bhavani Curry [facility] on 06/08/25 10:18 UA Nitrite Negative Last Edit by Bhavani Curry [facility] on 06/08/25 10:18 UA Urobilinogen 0.2 mg/dL Last Edit by Bhavani Curry [facility] on 06/08/25 10:1 8 UA Protein 0 mg/dL Last Edit by Bhavani Curry [facility] on 06/08/25 10:18 UA pH 6.0 Last Edit by Bhavani Curry [facility] on 06/08/25 10:18 UA Blood 0 Arnoldo/uL Last Edit by Bhavani Curry [facility] on 06/08/25 10:18 UA Specific [place] 1.010 Last Edit by Bhavani Curry [facility] on 06/08/25 10: 18 UA Ketone Negative Last Edit by Bhavani Curry [facility] on 06/08/25 10:18 UA Bilirubin 0 mg/dL Last Edit by Bhavani Curry [facility] on 06/08/25 10:18 UA Glucose 0 mg/dL Last Edit by Bhavani Curry [facility] on 06/08/25 10:18 Results Reviewed Results Reviewed: Laboratory Last Values Urine pH (Auto) 6.0 06/08/25 10:17 Specific [place] (Auto) 1.010 06/08/25 10:17 Urine Protein (Auto) 0 mg/dL 06/08/25 10:17 Glucose (UA)(Auto) 0 mg/dL 06/08/25 10:17 Urine Ketones (Auto) Negative 06/08/25 10:17 Urine Blood (Auto) 0 Arnoldo/uL 06/08/25 10:17 Urine Nitrite (Auto) Negative 06/08/25 10:17 Urine Bilirubin (Auto) 0 mg/dL 06/08/25 10:17 Urine Urobilinogen (Auto) 0.2 mg/dL 06/08/25 10:17 Leukocyte Esterase (Auto) 0 Vidal/uL 06/08/25 10:17 Date of Service: 03/27/25 US Renal Comparison: None provided Findings: Right kidney normal size and echotexture, 13.6 cm length. Multiple benign-appearing cysts the largest within the midpole measuring up to 2 cm. Left kidney normal size and echotexture, 11.2 cm length. Benign-appearing midpole cyst measuring up to 2.2 cm. No hydronephrosis of either kidney. Normal color Doppler. Urinary bladder is unremarkable. Prevoid volume 225 mL. Postvoid volume 52 mL. Bilateral ureteral jets are visualized. The prostate gland is enlarged measuring 37 mL. There is the suggestion of a 1.0 x 1.1 x 0.6 cm heterogeneous cystic and solid nodule or lesion. IMPRESSION: Benign renal cysts. No obstructive uropathy. Zvlyj-ge-duvxwlfg postvoid residual. The prostate gland is enlarged and demonstrates a nodular lesion as detailed. Assessment & Plan Assessment & Plan Orders: Orders AMB Post Void Residual by ultrasound Today N40.1 - Benign prostatic hyperplasia with lower urinary tract symptoms AMB Urinalysis Automated Today Z13.9 - Encounter for screening, unspecified Coding CPT Codes Post Residual Void - PVR CPT Code: 63677-[id number] Void Residual by ultrasound ([id number])
--- OUTSIDE RECORDS SUMMARY | 2025-06-08 12:19 | XMS_ITS | Patient Health Record ---
Author Organization [facility] Address [address] [place] [phone] Care Team Providers Care Cash Manager Name Role Phone Elina (RETIRED) Eduard GRAY Primary Care Provide r Unavailable Davion Painting Unavailable [phone] Allergies Allergen (clinical drug ingredient) Drug/Non Drug Allergy documented on EMR Reaction Allergy Type Onset Date Status Penicillin rash Drug Allergy Active Reason For Referral No Information Medications Medication SIG (Take, Route, Frequency, Duration) Notes Start Date End Date Status metFORMIN HCl 500 MG Tablet 1 tablet wit h a meal Orally Once a day; Duration: 30 day(s) Active Aspir-81 81 MG Tablet Delayed Release 1 tablet Orally Once a day; Duration: 30 day(s) Active Multi Vitamin/Minerals - Tablet as directed Orally QD Active Fish Oil 1200 MG Capsule Delayed Release 1 capsule Orally three x a day Active Vitamin D 1000 UNIT Tablet 1 tablet Oral ly Once a day; Duration: 30 day(s) Active Lisinopril-hydroCHLOROthiaz rell 20-25 MG Tablet 1 tablet Orally Once a day; Duration: 30 day(s) Active Atorvastatin Calcium 40 MG Tablet 1 tablet Orally Once a day Active Immunizations Vaccine Route Administration Date Status Comme nts Influenza Unknown 06/25/2018 Refused Social History Tobacco Use: Social History Observation Description Date Details (start date - stop date) Never Smoker NA - NA Social History Drugs/Alcohol: Social Info Question Answer Notes Alcohol Screen Did you have a drink containing alcohol in the past year? Yes How often did you have a drink containing alcohol in the past year? Monthly or less (1 point) How many drinks did you have on a typical day when you were drinking in the past year? 1 or 2 drinks (0 point) How often did you have 6 or more drinks on one occasion in the past year? 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 Section Notes: Nonsmoker; no sig alcohol Problems Problem Type SNOMED Code ICD Code Onset Dates Problem Status W/U Status Risk Notes Problem Screening for malignant neoplasm of colon (407435030) Encounter for screening for malignant neoplasm of colon (Z12.11) Active confirmed Problem Pre-procedure evaluation check (703174452) Pre-procedural examination (Z01.818) Active confirmed Plan Of Treatment Pending Test Test Name Order Date GI BIOPSY 07/23/2018 Future Test Test Name Order Date COLONOSCOPY 06/25/2018 Insurance Providers Payer Name Payer Address Payer Phone Subscriber Number Group Number Insured Name Patient Relationship to Insured Coverage Start Date Coverage End Date [facility] [address] [place], [place] [phone] [id number] 001 [address] POE Self - patient is the insured Medical (General) History Medical History History ICD Code Denies [place],CVA,Lung disease,renal disease Hypertension NIDDM Hyperlipidemia Neg. screening colonoscopy in 11/2007 Surgical History Surgery Date(Month/Year) Right Shoulder surgery
== END 2025-06-08 10:51 | disposition home or self-care (01) ==
LOC: HO.HUSH 10:01
PROVIDERS: PCP Internal Medicine; Visit Provider Urology
DX: Z13.9 Encounter for screening, unspecified (principal)

== ENCOUNTER 2025-06-12 15:29 | Outpatient (AMB) | payer MEDICARE, MEDICAID, SELFPAY ==
[2025-06-12 16:17] VITALS: BP 114/62; PULSE 68; O2SAT 95; BMI 25.5
--- NOTE | 2025-06-12 16:17 | MHC.PC.OV ---
Vital Signs 06/12/25 16:17 Height 6 ft Weight 188 lb 4 oz BMI 25.5 BP 114/62 Blood Pressure Location Lt brachial Position Sitting Pulse 68 Pulse Source Pulse Oximeter Pulse Oximetry (%) 95 Oxygen Delivery Method Room Air Intake Visit Reasons: 4 months labs Licensed Optical Dispenser Required: No Accompanied by: Self / Same As Patient Allergies Penicillins (PENICILLINS) Allergy (Intermediate, Verified 06/12/25 16:27) RASH Medication List - Last Reconciled 06/12/25 by Melanie Lux MD atorvastatin 80 mg PO BEDTIME 90 days finasteride (Proscar) 5 mg PO DAILY lisinopril-hydrochlorothiazide 20-25 mg 1 tab PO DAILY metformin ER 2,000 mg (4 x 500 mg) PO DAILY multivitamin 1 tab PO DAILY omega-3 fatty acids (Fish Oil Concentrate) 1,000 mg PO DAILY tadalafil 20 mg PO DAILY PRN 30 days tadalafil (Cialis) 5 mg PO DAILY 30 days Tobacco use date assessed: 06/12/25 Fall risk assessment: No Falls in past year Last assessed Fall Risk: 06/12/25 Dental Screening Dental Screen Date: 06/12/25 Did you have a dental visit in the last 12 months?: No Did you have a dental problem in the last 6 months where you did not have access to dental care?: No Was dental information given to patient?: No HPI HPI Comments History of Present Illness Details This is a 70-year-old male with diabetes mellitus type 2, hypertension, pure hypercholesterolemia and low vitamin-D that comes today for follow-up on his conditions. A1c of 5.6% today therefore within goal. Blood pressure within goal. LDL close to goal being less than 70. On vitamin-D supplements for his low vitamin-D. Had an MRI of the prostate with suspicion of prostate cancer and this is follow by Urology. [facility] Medical History Physical exam Hypovitaminosis D Long-term use of aspirin therapy Pure hypercholesterolemia Essential hypertension Diabetes mellitus Surgical History History of cataract removal with insertion of prosthetic lens H/O hernia repair History of shoulder surgery Family History Father Hypertension CVD (cardiovascular disease) Myocardial infarction Mother Diabetes Aneurysm Brother Diabetes Sister Alive and well Social History Housing: House Alcohol intake: current Alcohol intake frequency: holidays/special occasions only Alcohol type: beer Patient Tobacco Use Status: Never used Tobacco e-Cigarette/Vaping Use: Never Used Second Hand Smoke Exposure: No service: No Current occupational status: retired Cognitive needs: No Hearing needs: No Vision needs: Yes Questionnaire PHQ-9 Over the last 2 weeks, how often have you been bothered by any of the following problems? 1. Little interest or pleasure in doing things: not at all 2. Feeling down, depressed, or hopeless: not at all 3. Trouble falling or staying asleep, or sleeping too much: not at all 4. Feeling tired or having little energy: not at all 5. Poor appetite or overeating: not at all 6. Feeling bad about yourself - or that you are a failure or have let yourself or your family down: not at all 7. Trouble concentrating on things, such as reading the newspaper or watching television: not at all 8. Moving or speaking so slowly that other people could have noticed. Or the opposite - being so fidgety or restless that you have been moving around a lot more than usual: not at all 9. Thoughts that you would be better off or of hurting yourself in some way: not at all Total score: 0 Depression Screening Interpretation: Negative Depression Screening Done: Yes 53649 - PHQ-9 Billing: Yes Source: Developed by Drs. Davion aSldivar, Rochelle Dave, Wayne Garcia and colleagues, with an educational keri from [employer]. Thrive Questionnaire Date Thrive assessed: 06/12/25 I am a: Patient What is your living situation today?: I have a steady place to live Within the past 12 months, did the food you bought not last and you didn't have the money to get more?: Sometimes True Within the past 12 months, did you worry whether your food would run out before you got money to buy more?: Sometimes True Do you have trouble paying for medicines?: No Do you have trouble getting transportation to medical appointments?: No Do you have trouble paying your heating and electricity bill?: Yes Do you have trouble taking care of your child, family member or friend?: No Do you have trouble with day-to-day activities such as bathing, preparing meals, shopping, managing finances, etc.?: No Are you currently unemployed and looking for a job?: I choose not to answer this question Are you interested in more education?: No Please select the resources that you would like help with: None Currently or been in a relationship where the following occur: No concerns reported THRIVE Score: 3 AUDIT C Alcohol Use Questionnaire (AUDIT-C) 1. How often do you have a drink containing alcohol?: 2-4 times a month 2. How many drinks containing alcohol do you have on a typical day when you are drinking?: 3 or 4 3. How often do you have six or more drinks on one occasion?: Never Total Score: 3 Score Reviewed/Action Taken: No SARAH-7 AMB Questionnaire SARAH-7 Date SARAH - 7 assessed: 06/12/25 Feeling nervous, anxious, or on edge: 0 = Not at all Not being able to stop or control worryin = Not at all Worrying too much about different things: 0 = Not at all Trouble relaxin = Not at all Being so restless that it is hard to sit still: 0 = Not at all Becoming easily annoyed or irritable: 0 = Not at all Feeling afraid as if something awful might happen: 0 = Not at all Total SARAH-7 score (0-4 normal; 5-9 mild; 10-14 moderate; 15-21 severe): 0 Source: Developed by Drs. Davion Saldivar, Rochelle Dave, Wayne Garcia and colleagues, with an educational keri from [employer]. SARAH-7 Assessment Billing SARAH-7 Assessment Tool: SARAH-7 Assessment 17601 Review of Systems Const All systems reviewed & are unremarkable except as noted in HPI and below Card Denies chest pain at rest, Denies chest pain with activity, Denies edema, Denies irregular heart rhythm, Denies claudication, Denies dyspnea, Denies dyspnea on exertion, Denies orthopnea, Denies paroxysmal nocturnal dyspnea and Denies slow heart rate Resp Denies cough, Denies dyspnea and Denies dyspnea on exertion Physical exam (Primary Care) Vital Signs: Last Vital Signs Pulse 68 06/12/25 16:17 BP 114/62 06/12/25 16:17 Pulse Ox 95 06/12/25 16:17 Oxygen Delivery Method Room Air 06/12/25 16:17 BMI result Body Mass Index 25.5 Tobacco/Smoking Status: Tobacco use Status Tobacco use date assessed 06/12/25 06/12/25 16:19 Patient Tobacco Use Status Never used Tobacco 06/12/25 16:19 Tobacco use type 03/11/21 09:09 e-Cigarette/Vaping Use Never Used 06/12/25 16:19 PHQ-9: PHQ-9 Score PHQ-9: Total score 0 06/12/25 17:04 Depression Screening Interpretation: Negative Thrive Assessment: Date of Thrive Assessment Date Thrive assessed 06/12/25 06/12/25 16:19 Currently or been in a relationship where the following occur: No concerns reported Resp Effort & Inspection: normal respiratory effort Auscultation: clear to auscultation bilaterally Cardio Jugular venous distension: no JVD Rate: regular rate Rhythm: regular rhythm Heart sounds: S1 normal heart sound present and S2 normal heart sound present Extrem General: Yes full ROM Results AMB Hemoglobin A1c AMB Hemoglobin A1c 5.8 % Last Edit by Amber Alberts MA on 06/12/25 17:05 Results Reviewed Results Reviewed: Laboratory Last Values Hgb A1c (Clinic) 5.8 % (4.0-6.0) 06/12/25 16:31 Coding Level of Care Code Add On Preventative Visit Only Diagnoses Type 2 diabetes mellitus without complication, without long-term current use of insulin E11.9 Diabetes mellitus type: type 2 Diabetes mellitus half-way insulin use: without customer account technician use Diabetes mellitus complication status: without complication Essential hypertension I10 Pure hypercholesterolemia E78.00 Hypovitaminosis D E55.9 Additional Codes SARAH-7 Assessment Billing - SARAH-7 Assessment Tool: SARAH-7 Assessment 94579 ([id number]) PHQ-9 - 74836 - PHQ-9 Billing: Yes ([id number]) Time Spent (min) 22 Assessment & Plan Assessment & Plan (1) Diabetes mellitus: Code(s): E11.9 - Type 2 diabetes mellitus without complications Category: Medical Qualifiers: Diabetes mellitus type: type 2 Diabetes mellitus customer account technician insulin use: without half-way use Diabetes mellitus complication status: without complication Qualified Code(s): E11.9 - Type 2 diabetes mellitus without complications (2) Essential hypertension: Code(s): I10 - Essential (primary) hypertension Category: Medical (3) Pure hypercholesterolemia: Code(s): E78.00 - Pure hypercholesterolemia, unspecified Category: Medical (4) Hypovitaminosis D: Code(s): E55.9 - Vitamin D deficiency, unspecified Category: Medical Plan Continue same medications. Continue diabetic eye exam yearly. Follow-up with Urology regarding his prostate. A1c goal is equal or less than 7%. Blood pressure goal is equal or less than 130/80. LDL goal is less than 70. Orders: Orders AMB Hemoglobin A1c Today Z13.9 - Encounter for screening, unspecified
--- OUTSIDE RECORDS SUMMARY | 2025-06-12 18:31 | XMS_ITS | Patient Health Record ---
Author Organization [facility] Address [address] [place] [id number] Care Team Providers Care Shaper Machine Hand Name Role Phone Elina (RETIRED) Eduard GRAY Primary Care Provide r Unavailable Davion Painting Unavailable [phone] Allergies Allergen (clinical drug ingredient) Drug/Non Drug [...] Problem Screening for malignant neoplasm of colon ([id number]) Encounter for screening for malignant neoplasm of colon (Z12.11) Active confirmed Problem Pre-procedure evaluation check ([id number]) Pre-procedural examination (Z01.818) Active confirmed Plan Of Treatment Pending Test Test Name Order Date GI BIOPSY 07/23/2018 Future Test Test Name Order Date COLONOSCOPY 06/25/2018 Insurance Providers Payer Name Payer Address Payer Phone Subscriber Number Group Number Insured Name Patient Relationship to Insured Coverage Start Date Coverage End Date [facility] [address] [place], [place] [id number] [id number] AUSTEN POE Self - patient is the insured Medical (General) History Medical History History ICD Code Denies MT,CVA,Lung disease,renal disease Hypertension NIDDM Hyperlipidemia Neg. screening colonoscopy in 11/2007 Surgical History Surgery Date(Month/Year) Right Shoulder surgery
== END 2025-06-12 16:50 | disposition home or self-care (01) ==
LOC: HO.HMCH 15:30
PROVIDERS: PCP Internal Medicine; Visit Provider Internal Medicine
DX: E11.9 Type 2 diabetes mellitus without complications (principal); I10 Essential (primary) hypertension; E78.00 Pure hypercholesterolemia, unspecified; E55.9 Vitamin D deficiency, unspecified; Z13.9 Encounter for screening, unspecified

== ENCOUNTER → 2025-06-12 15:29 | Outpatient (BNVA) | payer MEDICARE, MEDICAID, SELFPAY | PROVIDERS: PCP Internal Medicine; Visit Provider Internal Medicine | DX: E11.9 Type 2 diabetes mellitus without complications (principal); E78.00 Pure hypercholesterolemia, unspecified; I10 Essential (primary) hypertension; E55.9 Vitamin D deficiency, unspecified | CPT/HCPCS: 83036; 96127; 99212 ==